=== PATIENT | female | born 1955 | race Caucasian/White ===

== ENCOUNTER 2017-07-19 06:36 | Emergency (ER) | payer MEDICARE, OTHER ==
[~2017-07-19] VITALS: Ht 170.2 cm; Wt 59.0 kg
[~2017-07-19 06:36] MED LIST: ALPRAZOLAM ER1 MG PO; CYMBALTA30 MG PO; FLEXERIL10 MG PO; GABAPENTIN300 MG PO; GOLYTELY SOLU4000 ML PO; METHADONE HCL5 MG; MORPHINE SULFAT15 M1 PO; OMEPRAZOLE20 MG PO; PRAZOSIN HCL2 MG PO; SUMATRIPTAN SUC50 MG PO; TRAMADOL HCL50 MG PO; TRAZODONE HCL50 MG PO; ZOCOR10 MG PO; ZYRTEC10 MG PO
[2017-07-19] MEDS ORDERED: MOVANTIK25 MG PO (06:48)
[2017-07-19] MEDS ORDERED: CHANTIX0.5 MG PO (06:48)
[2017-07-19] MEDS ORDERED: PREDNISONE20 MG PO (09:13)
== END 2017-07-19 10:01 | disposition home or self-care (01) ==
LOC: ED 06:36
DX: T23.202A Burn of second degree of left hand, unspecified site, initial encounter (principal); J70.5 Respiratory conditions due to smoke inhalation; F31.9 Bipolar disorder, unspecified; M06.9 Rheumatoid arthritis, unspecified; J44.9 Chronic obstructive pulmonary disease, unspecified; Z87.891 Personal history of nicotine dependence; Z98.51 Tubal ligation status; Z88.5 Allergy status to narcotic agent; X02.8XXA Other exposure to controlled fire in building or structure, initial encounter
CPT/HCPCS: 71010; 82375; 85025; 94640; 99283; J7512

== ENCOUNTER 2017-08-11 13:13 | Emergency (ER) | payer MEDICARE, OTHER ==
[~2017-08-11] VITALS: Ht 170.2 cm; Wt 59.0 kg
[~2017-08-11 13:13] MED LIST changes: +CHANTIX0.5 MG PO; +MOVANTIK25 MG PO; +PREDNISONE20 MG PO
== END 2017-08-11 13:36 | disposition home or self-care (01) ==
LOC: ED 13:13
DX: R07.81 Pleurodynia (principal); Z00.8 Encounter for other general examination

== ENCOUNTER 2023-07-22 04:11 | Emergency (ER) | payer MEDICARE, OTHER ==
[~2023-07-22] VITALS: Ht 170.2 cm; Wt 66.8 kg
[~2023-07-22 04:11] MED LIST changes: +ALPRAZOLAM0.25 MG PO; +BUPRENORPHINE HC8 MG SL; +CYCLOBENZAPRINE10 MG PO; +MINIPRESS2 MG PO; +MIRTAZAPINE15 MG PO; +PREGABALIN150 MG PO; +SPIRIVA18 MCG INH
--- OUTSIDE RECORDS SUMMARY | 2023-07-22 04:13 | XMS ---
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 ED/UCC VISIT TRACKING (12 MO.) 07/22/2023 04:11 JASMIN Ledezma OR TYPE: Emergency COMPLAINT: - SOB INPATIENT VISIT TRACKING (12 MO.) No inpatient visits to display in this time frame [email or web address]
[2023-07-22 04:42] LABS: BASOPHILS 0.9 % (0-2); EOSINOPHILS 5.9 % (0-6); HEMATOCRIT 42.3 % (35.0-50.0); HEMOGLOBIN 13.8 g/dL (12.0-18.0); LYMPHOCYTES 33.8 % (24-44); MCH 28.7 (27-36); MCHC 32.6 g/dl (30-36); MCV 88.1 fl (81-99); MONOCYTES 7.5 % (0-12); NEUTROPHILS 51.9 % (39-80); PLATELET COUNT 69 K/uL (140-440); RDW 13.8 (10.5-15.0)
[2023-07-22 04:54] LABS: ALBUMIN 3.7 g/dL (3.4-5.0); ALBUMIN/GLOBULIN RATIO 0.88 (1.1-2.4); ANION GAP 8.7 (7-21); BILIRUBIN, TOTAL 0.3 ng/dL (0.2-1.0); BUN/CREATININE RATIO 10.14 (6.0-28.6); CREATININE, SERUM 0.69 mg/dL (0.55-1.02); MAGNESIUM 1.9 mg/dL (1.8-2.4); POTASSIUM 4.7 mmol/L (3.5-5.1); PROTEIN, TOTAL 7.9 g/dL (6.4-8.2)
[2023-07-22 06:18] VITALS: BP 115/90
--- NOTE | 2023-07-23 12:14 | EKG ---
[facility] [address] [place] [address] Signed Normal sinus rhythm Normal ECG When compared with ECG of 21-MAY-2022 00:04, Nonspecific T wave abnormality no longer evident in Inferior leads T wave inversion no longer evident in Anterior leads Confirmed by DANIELLA GERBER MD ([id number]) on 07/23/2023 12:14:45 PM Electronically Signed By: DANIELLA GERBER 07/23/23 1214 PATIENT NAME: YUNGYEMI KAYLEN Electrocardiogram DATE OF : 51 PHYSICIAN: DANIELLA GERBER REPORT #: [id number] REPORT IS CONFIDENTIAL AND NOT TO BE RELEASED WITHOUT AUTHORIZATION
== END 2023-07-22 06:18 | disposition home or self-care (01) ==
LOC: ED 04:11
PROVIDERS: Internal Medicine
DX: R10.13 Epigastric pain (principal); F43.10 Post-traumatic stress disorder, unspecified; I10 Essential (primary) hypertension; J44.9 Chronic obstructive pulmonary disease, unspecified; M06.9 Rheumatoid arthritis, unspecified; Z88.8 Allergy status to other drugs, medicaments and biological substances; Z88.5 Allergy status to narcotic agent; Z79.899 Other long term (current) drug therapy
CPT/HCPCS: 36415; 71045; 80053; 83690; 83735; 83880; 84484; 85025; 93005; 93010; 99284-25; G0480

== ENCOUNTER 2024-09-08 20:27 | Emergency (ER) | payer MEDICARE, OTHER ==
[~2024-09-08] VITALS: Ht 170.2 cm; Wt 50.0 kg
[~2024-09-08 20:27] MED LIST changes: +LEVOFLOXACIN500 MG PO; +MIRTAZAPINE45 MG PO; +SUMATRIPTAN SU100 MG PO
[2024-09-08] MEDS ORDERED: KETOROLAC TROMETHAMINE 30 MG/ML VIAL IM ONE (21:00)
[2024-09-08] MEDS ORDERED: HYDROCODON-ACE1 EA10 PO (22:26)
[2024-09-08] MEDS ORDERED: HYDROCODONE BIT/ACETAMINOPHEN 5/325 MG 1 TAB HOME.PACK PO ONE (22:30)
[2024-09-08 22:40] VITALS: BP 106/73
== END 2024-09-08 22:40 | disposition home or self-care (01) ==
LOC: ED 20:27
DX: S42.124A Nondisplaced fracture of acromial process, right shoulder, initial encounter for closed fracture (principal); I10 Essential (primary) hypertension; J44.9 Chronic obstructive pulmonary disease, unspecified; Z87.891 Personal history of nicotine dependence; Z88.8 Allergy status to other drugs, medicaments and biological substances; Z88.5 Allergy status to narcotic agent; Z79.899 Other long term (current) drug therapy; W06.XXXA Fall from bed, initial encounter
CPT/HCPCS: 70450; 72125; 73030; 96372; 99284-25; A9270; J1885

== ENCOUNTER 2024-09-10 20:26 | Inpatient (IN) | payer MEDICARE, OTHER ==
[~2024-09-10] VITALS: Ht 170.2 cm; Wt 58.0 kg
[~2024-09-10 20:26] MED LIST changes: +HYDROCODON-ACE1 EA10 PO
[2024-09-10] MEDS ORDERED: DEXTROSE 50% 50 ML SYR ONE (20:30)
--- OUTSIDE RECORDS SUMMARY | 2024-09-10 20:33 | XMS ---
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 Clinic/Center: [facility] Qualified Health Current WORKERS CLINIC \F\ Center (FQ) [facility] PHONE: [phone] Care Guidelines exist for the following facilities: [facility] ( 04/09/2020 ) EJay VISIT COUNT (12 MO.) 3 JASMIN Wheeler TOTAL 3 NOTE: Visits indicate total known visits. ED/UCC VISIT TRACKING (12 MO.) 09/10/2024 20:27 JASMIN Ledezma OR TYPE: Emergency COMPLAINT: - SHORTNESS OF BREATH 09/08/2024 20:27 JASMIN Ledezma OR TYPE: Emergency COMPLAINT: - SHOULDER PAIN 10/05/2023 09:34 JASMIN Ledezma OR TYPE: Emergency COMPLAINT: - ABD PAIN, SOB DIAGNOSES: - Emphysema, unspecified - Encounter for screening for COVID-19 - Essential (primary) hypertension - Lower abdominal pain, unspecified - Other intermediate designer (current) drug therapy - Personal history of nicotine dependence - Pneumonia, unspecified organism - Shortness of breath INPATIENT VISIT TRACKING (12 MO.) No inpatient visits to display in this time frame [email or web address]
[2024-09-10] MEDS ORDERED: DEXTROSE 50% 50 ML SYR IV ONE (20:45)
[2024-09-10 21:01] LABS: BASOPHILS 0.9 % (0-2); EOSINOPHILS 0.1 % (0-6); HEMATOCRIT 46.8 % (35.0-50.0); HEMOGLOBIN 15.3 g/dL (12.0-18.0); LYMPHOCYTES 17.5 % (24-44); MCH 28.7 (27-36); MCHC 32.7 g/dl (30-36); MONOCYTES 3.9 % (0-12); NEUTROPHILS 77.6 % (39-80); PLATELET COUNT 642 K/uL (140-440); RBC 5.32 M/ul (4.3-5.7); RDW 14.1 (10.5-15.0)
[2024-09-10 21:10] LABS: ALBUMIN 3.9 g/dL (3.4-5.0); ALBUMIN/GLOBULIN RATIO 0.95 (1.1-2.4); ANION GAP 19.8 (7-21); BILIRUBIN, TOTAL 0.4 ng/dL (0.2-1.0); BUN/CREATININE RATIO 30.55 (6.0-28.6); CALCIUM 8.7 mg/dL (8.5-10.1); CREATININE, SERUM 0.72 mg/dL (0.55-1.02); POTASSIUM 3.8 mmol/L (3.5-5.1)
[2024-09-10] MEDS ORDERED: ACETAMINOPHEN 500 MG TAB PO ONE (21:30)
[2024-09-10] MEDS ORDERED: LACTATED RINGER'S 1,000 ML IV ONE ×2 (21:30→23:45)
[2024-09-10] MEDS ORDERED: KETOROLAC TROMETHAMINE 15 MG/ML VIAL IV ONE (21:30)
[2024-09-10 21:38] LABS: MAGNESIUM 2.3 mg/dL (1.8-2.4); PHOSPHORUS, INORGANIC 3.4 mg/dL (2.5-4.9)
[2024-09-10] MEDS ORDERED: MORPHINE SULFATE 4 MG/ML VIAL IV ONE (22:30)
[2024-09-10 23:03] LABS: BILIRUBIN, URINE NEGATIVE (negative); BLOOD/HGB, URINE SMALL (Negative); KETONE, URINE SMALL (Negative); LEUK ESTERASE, URINE SMALL (negative); NITRITE, URINE POSITIVE (negative); PH, URINE 5.5 (5-7)
[2024-09-10 23:23] LABS: CRYSTALS, URINE NONE SEEN (0-1+); EPITHELIAL CELLS, URINE SQUAMOUS 2+ /lpf (0-1+)
[2024-09-10 23:24] LABS: BACTERIA, URINE 2+ /hpf (negative); CASTS, URINE NEGATIVE \\lpf; COLLECTION TYPE, URINE CLEAN CATCH; REFLEX CULTURE, URINE No (No)
[2024-09-10] MEDS ORDERED: CEFTRIAXONE/SODIUM CHLORIDE 2 GM/100 ML PIGGYBACK IV ONE (23:45)
[2024-09-10] MEDS ORDERED: HYDROmorphone HCL 1 MG/ML SYR IV PRN (23:45)
[2024-09-11] VITALS (14 sets, daily range): BP systolic 95–139; BP diastolic 68–94
[2024-09-11] MEDS ORDERED: ondansetron HCL 4 MG/2 ML VIAL IV PRN ×2 (00:15→11:00)
[2024-09-11] MEDS ORDERED: HYDROmorphone HCL 1 MG/ML SYR IV PRN (00:15)
[2024-09-11] MEDS ORDERED: FOLIC ACID 1 MG TAB PO ONE (00:30)
[2024-09-11] MEDS ORDERED: MULTIVITAMINS THERAPEUTIC 1 EA TAB PO ONE (00:30)
[2024-09-11] MEDS ORDERED: DIPHTH,PERTUSS(ACELL),TET VAC 0.5 ML SYRINGE IM ONE (00:45)
--- NOTE | 2024-09-11 01:16 | NUR ---
Pt arrived to the room at 0110 hours, transferred via stretcher by LIANNE You. Pt report received from LIANNE You. Pt states she normally ambulates using a cane but was able to stand and transfer to the bed with minimal guidance, using handrails on bed. VS obtained. IV site patent, no swelling, leaking, no c/o discomfort or pain. Pt reports the last alcohol she drank was 3 or 4 days ago and it was vodka. She states she is familiar with withdrawal symptoms and states she usually experiences "the shakes". Pt oriented to room and call light, television turned on for her. Iced water provided. Pt is oriented x4. Personal belongings in SAH bag in closet, pt denies anything of value being with her, including her purse. Call light in reach.
[2024-09-11] MEDS ORDERED: LORazepam 1 MG TAB PO PRN (01:30)
[2024-09-11] MEDS ORDERED: LORazepam 2 MG/ML VIAL IV/IM PRN ×2 (01:30→11:30)
--- NOTE | 2024-09-11 03:46 | NUR ---
In with pt for CIWA reassessment. Pt current score of 8 from 10. Pt reports feeling itchy "all over" and some tingling in her feet. She is fidgety and restless, reports some nausea, no vomiting, no headache, not diaphoretic, no visual/auditory disturbances. 1mg Ativan administered PO at this time, per emar. Call light in reach.
--- NOTE | 2024-09-11 05:50 | NUR ---
In with pt for CIWA assessment. Pt is resting supine in bed with eyes closed, appears to be asleep. Breathing is regular, even, and non-labored, SPO2 97% on 3LPM while asleep. Side rails up, call light in reach.
--- NOTE | 2024-09-11 07:31 | NUR ---
RECIEVED MORNING REPORT FROM LITURGICAL MUSIC DIRECTOR RN, PT LAYING IN BED WITH EYES OPEN AND AWAKE. PT REPORTED HAVING TROUBLE SLEEPING THROUGHOUT THE NIGHT AND REQUESTED A POSSIBLE SLEEP AID. PT NOTIFIED WILL LOOK AT EMAR. PT HAS NO OTHER CONCERNS AT THIS TIME. PT CALL LIGHT WITHIN REACH.
[2024-09-11] MEDS ORDERED: THIAMINE HCL 100 MG TAB PO SCH (08:00)
--- NOTE | 2024-09-11 09:50 | NUR ---
LEFT MESSAGE FOR COPEN CRISIS LINE PATIENT IS INTERESTED IN OPTIONS.
--- NOTE | 2024-09-11 10:24 | NUR ---
PATIENT IS MODERATELY RESTLESS, ALCOHOL W/D SCALE IS 13. PATIENT GIVEN 1MG OF PO ATIVAN.
[2024-09-11] MEDS ORDERED: SODIUM CHLORIDE 0.9% 1,000 ML IV SCH (11:00)
[2024-09-11] MEDS ORDERED: THIAMINE HCL 100 MG,FOLIC ACID 1 MG,MULTIVITAMINS 10 ML in SODIUM CHLORIDE 0.9% 1,000 ML IV ONE (11:30)
--- NOTE | 2024-09-11 11:30 | NUR ---
DISCUSSED WITH MD ON CONCERNS OF PT ELEVATED CIWA SCORES AND DISCUSSING CCU. COIN MACHINE SUPERVISOR AND CHARGE NURSE IN CONVERSATION. IN AGREEMENT PT IS NOT BECOMING LESS ANXIOUS WITH ATIVAN.
--- NOTE | 2024-09-11 11:30 | NUR ---
THIS RN AND LIANNE BENAVIDES IN ROOM ADMINSTERING ATIVAN PT IS DISORIENTED TO ALL. PT APPEARS ANXIOUS. ALERT, BUT UNABLE TO FOLLOW COMMANDS.
[2024-09-11] MEDS ORDERED: PHARMACY RENAL DOSE ADJUSTMENT 1 DOSE MISC PO SCH (12:00)
--- NOTE | 2024-09-11 12:34 | NUR ---
PT TO FLOOR VIA BED WITH LIANNE TOSCANO AND THIS RN. PT ANSWERS SOME QUESTIONS. CONSTANTLY MOVING AND SQUIRMING AROUND. ATTATCHED TO MONITORS WHICH SHE REMOVES ALMOST IMMEDIETLY. LUNCH ON TRAY IN FRONT OF HER. STATES SHE IS HUNGRY.
--- NOTE | 2024-09-11 13:22 | NUR ---
PT IN BED STILL FIDGITY BUT HAS EYES CLOSED. ALARMS ON.
--- NOTE | 2024-09-11 13:59 | NUR ---
PT MORE FIDGETY AND PULLING AT HER IV DRESSING. DID ANOTHER CIWA, UP TO 13 AGAIN. ADMINISNTERED ATIVAN PER ORDER.
--- NOTE | 2024-09-11 14:04 | NUR ---
UR CLINICAL REVIEW: 2 MN FOR VERSALUS-MEETS INPATIENT CRITERIA [facility] INPT 09/11/24 @ 1054 ORDER MATCHES REG NO AUTH REQUIRED PER MEDICARE GUIDELINES DISCHARGE PENDING FURTHER TREATMENT AND EVALUATION
[2024-09-11] MEDS ORDERED: buprenorphine HCL 8 MG TAB.SUBL SL SCH (14:35)
--- NOTE | 2024-09-11 15:42 | NUR ---
ADMINISTERED SCHEDULED BUPENOPHRINE. PT MOVING AROUND IN BED AGAIN. AWARE OF SURROUNDINGS. REPORTS BEING COLD. COVERED WITH BLANKETS AGAIN.
[2024-09-11 15:51] LABS: AMPHETAMINES, URINE NEGATIVE (NEGATIVE); BARBITURATES, URINE NEGATIVE (NEGATIVE); BENZODIAZEPINE, URINE NEGATIVE (NEGATIVE); BUPRENORPHINE, URINE POSITIVE (NEGATIVE); CANNABINOID, URINE NEGATIVE (NEGATIVE); COCAINE, URINE NEGATIVE (NEGATIVE); ECSTASY, URINE NEGATIVE (NEGATIVE); FENTANYL, URINE NEGATIVE (NEGATIVE); METHADONE, URINE NEGATIVE (NEGATIVE); OPIATES, URINE POSITIVE (NEGATIVE); OXYCODONE, URINE NEGATIVE (NEGATIVE); PHENCYCLIDINE, URINE NEGATIVE (NEGATIVE)
--- NOTE | 2024-09-11 16:02 | NUR ---
PT INCREASINGLY FIDGITY. ORIENTS WHEN TOLD TO PUT LEGS BACK IN BED. ALARMS ON. IVF INFUSING, THIAMINE COMPLETE.
--- NOTE | 2024-09-11 17:49 | NUR ---
CALLED REGARDING DIABETIC ORDERS AND HE WILL PUT IN SHORTLY.
[2024-09-11] MEDS ORDERED: DEXTROSE 5% 1,000 ML IV PRN (18:15)
[2024-09-11] MEDS ORDERED: IBLOOD GLUCOSE TEST STRIP 1 EA TEST XX PRN (18:15)
[2024-09-11] MEDS ORDERED: DEXTROSE 50% 50 ML SYR IV PRN ×2 (18:15)
[2024-09-11] MEDS ORDERED: GLUCAGON,HUMAN RECOMBINANT 1 MG/ML VIAL SUB-Q PRN (18:15)
--- NOTE | 2024-09-11 18:53 | NUR ---
PT AWAKE AND WANTING TO EAT DINNER. WARMED UP IN MICROWAVE. PT IS MORE BRIGHT EYED AND ALERT THAN ANY TIME TODAY.
--- NOTE | 2024-09-11 19:38 | NUR ---
REPORT RECEIVED FROM SHOSHANA Mckenzie RN. PATIENT SITTING UP IN BED WHILE EATTING SUPPER. DENIES NEEDS EXCEPT REQUESTS THERMOSTAT BE TURNED UP, INCREASED PER REQUEST. CALL LIGHT IN REACH AND BED ALARM ON.
--- NOTE | 2024-09-11 20:12 | NUR ---
PATIENT PARTICIPATES IN ASSESSMENT BUT IS DROWSY. INCENTIVE SPIROMETER AND EDUCATION PROVIDED. PATIENT ABLE TO ACHIEVE 500ML. POSTERIOR LOWER LUNG LOBES AUSCULATED FOR CRACKLES. DR. MONTERROSO NOTIFIED. ORDER RECEIVED TO DECREASE IVF TO 75ML/HR.
--- NOTE | 2024-09-11 20:49 | NUR ---
PATIENT GIVEN WASH CLOTH TO CLEAN FACE AND HANDS. FRESH WATER GIVEN AND PO INTAKE ENCOURGED. IV ABX STARTED. CALL LIGHT IN REACH AND BED EXIT ALARM. FALL RISK AND SAFETY EDUCATION PROVIDED, PATIENT VERBALIZES UNDERSTANDING.
[2024-09-11] MEDS ORDERED: INSULIN LISPRO 100 UNIT/ML ML SUB-Q SCH (21:00)
[2024-09-11] MEDS ORDERED: CEFTRIAXONE/SODIUM CHLORIDE 2 GM/100 ML PIGGYBACK IV SCH (21:00)
[2024-09-11] MEDS ORDERED: IBLOOD GLUCOSE TEST STRIP 1 EA TEST VI SCH (21:00)
--- NOTE | 2024-09-11 21:15 | NUR ---
PATIENT SET OFF BED ALARM. PATIENT ATTEMPTED TO GET UP TO COMMODE WITHOUT ASSISTANCE. UNSTEADY ON FEET. VOIDED 550ML DARK YELLOW URINE. BACK TO BED. REINFORCED SAFETEY EDUCATION AND CALL LIGHT USE. BED ALARM BACK ON.
--- NOTE | 2024-09-11 21:50 | NUR ---
RR DECREASE NOTED ON MONITOR. PATIENT RESTING WITH EYES CLOSED AND MOUTH BREATING. REPOSITIONED IN BED TO PROMOTE IMPROVED VENTILATION. OXY MASK PLACED ON 2L WITH O2 SAT 97%.
--- NOTE | 2024-09-11 23:14 | NUR ---
PATIENT RESTLESS IN BED. PULLING AT OXYMASK, TEARING OFF COVERS, PULLING AT GOWN. REPORTS FEELING ANXIOUS. CIWA SCORE 8. MEDICATED WITH ATIVAN PER EMAR. PLACED BACK ON NC. CALL LIGHT IN REACH WITH BED EXIT ALARM ON.
--- NOTE | 2024-09-11 23:42 | NUR ---
PATIENT MOVED TO ROOM 128 AFTER MULTIPLE ATTEMPTS AT GETTING UP WITHOUT ASSISTANCE AND SETTING OFF BED EXIT ALARM. PATIENT DISORIENTED TO TIME BUT IS ORIENTED TO PLACE, ASKS "IS THE HOSPITAL SENDING ME HOME RIGHT NOW?" REASSURED PATIENT SHE IS NOT BEING SENT HOME AND IS BEING CARED FOR IN THE CCU. PATIENT ASKS THIS RN TO CALL HER SON, RE-ORIENTED TO TIME AND PATIENT REPORTS SHE CAN CALL HIM IN THE MORNING. BED EXIT ALARM REMAINS ON AND CALL LIGHT IN REACH. PERSONAL ITEMS IN REACH.
[2024-09-12] VITALS (16 sets, daily range): BP systolic 90–152; BP diastolic 60–90
--- NOTE | 2024-09-12 00:40 | NUR ---
PATIENT STARTLED AWAKE FOR ASSESSMENT. BEGAN PULLING AT GOWN, COVERS AND IV LINES. RESTLESS IN BED. ENDORSED BACK PAIN, MEDICATED PER EMAR FOR PAIN. PATIENT FOLLOWS DIRECTIONS TO LIE BACK IN BED. BED ALARM REMAINS ON, CALL LIGHT IN REACH.
--- NOTE | 2024-09-12 01:50 | NUR ---
PATIENT ATTEMPTED TO GET OOB WITHOUT ASSISTANCE. CIWA SCORES AT 10. 2 PERSON ASSIST TO BSC TO VOID. MEDICATED WITH ATIVAN PER EMAR. COMFORT MEASURES PROVIDED. BED ALARM ON WITH CALL LIGHT IN REACH.
--- NOTE | 2024-09-12 03:27 | NUR ---
DR. MONTERROSO UPDATED ON PATIENT'S CIWA STATUS WITH INCREASED CONFUSION AND INABILITY TO FOLLOW DIRECTIONS. PATIENT ROLLS AROUND IN BED, ATTEMPTS TO CLIMB OUT OF BED. PULLS AT LINES, LINENS. PATIENT C/O URGENCY TO VOID, HOWEVER NOW MORE UNSTEADY AND UNABLE TO FOLLOW DIRECTIONS TO USE COMMODE. ORDER RECEIVED FOR PHENOBARBITOL AND VARGHESE CATHETER. PATIENT NOTED TO HAVE SLIGHTLY PROLONGED QTC ON CONTINOUS TELEMETRY MONTORING, 500-502. ORDER RECEIVED FOR EKG.
[2024-09-12] MEDS ORDERED: PHENOBARBITAL SOD 130 MG/ML VIAL IV ONE (03:30)
--- NOTE | 2024-09-12 04:07 | NUR ---
PHENOBARBITOL GIVEN PER EMAR. VARGHESE CATHETER PLACED WITH IMMEDIATE RETURN OF 550ML CLEAR YELLOW URINE. UPON INSERTION SMALL AMOUNT OF WHITE TO YELLOWISH PURULENT DRAINAGE NOTED. PATIENT REPOSITIONED IN BED, PARTIAL LINEN CHANGE COMPLETED FOR INCONTINENCE OF URINE. PATIENT NOW LYING IN BED RELAXED AND REPORTS RELIEF. DENTURES REMOVED AND SOAKING. CALL LIGHT IN REACH, BED EXIT ALARM FOR SAFETY.
[2024-09-12 05:21] LABS: PH, VENOUS 7.374 (7.31-7.41)
[2024-09-12 05:23] LABS: BASOPHILS 0.8 % (0-2); EOSINOPHILS 3.4 % (0-6); HEMATOCRIT 34.8 % (35.0-50.0); HEMOGLOBIN 11.7 g/dL (12.0-18.0); LYMPHOCYTES 37.7 % (24-44); MCH 29.4 (27-36); MCHC 33.7 g/dl (30-36); MCV 87.3 fl (81-99); MONOCYTES 8.6 % (0-12); NEUTROPHILS 49.5 % (39-80); PLATELET COUNT 347 K/uL (140-440); RBC 3.99 M/ul (4.3-5.7); RDW 13.7 (10.5-15.0)
[2024-09-12 05:42] LABS: ALBUMIN 2.6 g/dL (3.4-5.0); ALBUMIN/GLOBULIN RATIO 0.96 (1.1-2.4); BILIRUBIN, TOTAL 0.4 ng/dL (0.2-1.0); BUN/CREATININE RATIO 17.24 (6.0-28.6); CALCIUM 8.1 mg/dL (8.5-10.1); CREATININE, SERUM 0.58 mg/dL (0.55-1.02); MAGNESIUM 1.7 mg/dL (1.8-2.4); PHOSPHORUS, INORGANIC 2.7 mg/dL (2.5-4.9); PROTEIN, TOTAL 5.3 g/dL (6.4-8.2)
--- NOTE | 2024-09-12 06:21 | NUR ---
PATIENT WAKES TO RN IN ROOM. IMMEDIATELY BEGINS PULLING AT GOWN, LINES AND LINEN, THRASHES IN BED. ORIENTED TO SELF. MEDICATED WITH ATIVAN PER EMAR. TELEMETRY LEADS REPLACED. WARM BLANKET PROVIDED. CALL LIGHT IN REACH WITH BED EXIT ALARM ON.
[2024-09-12] MEDS ORDERED: MAGNESIUM CHLORIDE 64 MG TABCR PO ONE (08:00)
--- NOTE | 2024-09-12 08:20 | NUR ---
PT RESTLESS AND CONFUSED, RN ASSISTED PT IN AM CARES - PT ASKING FOR DENTURES BUT HAS THEM IN HER MOUTH AFTER ORAL CARE. RN ASSISING PT TO EAT YOGURT FOR MEAL. PT HAS POOR HAND EYE COORDINATION AND CONTROL OF MOVEMENTS WITH CONFUSION ON ADLS. VERBAL CUES TO AID PT IN EATING AND STAYIN IN BED ANO ON TASK. PT THINKS SHE IS AT HER APARTMENT AND DOES NOT KNOW EVENT. IN SPITE OF BED BATH AND SPARKLE CARE PT HAS STRONG URINE ODOR, ATTENDS PLACED TO KEEP PT HANDS AWAY FROM SPARKLE AREA SHE IS PUTTING HER FOOD AND DENTURES IN THE AREA THEN TRYING TO EAT. VARGHESE EMPTIED 650 OF CLEAR YELLOW URINE, AND RN ASSISTED PT IN SECURING HAIR AWAY FROM FACE IN RUBBERBAND. BED ALARM ON AND VISIBLE TO RN STATION.
[2024-09-12] MEDS ORDERED: ENOXAPARIN SODIUM 40 MG/0.4 ML SYR SUB-Q SCH (09:00)
--- NOTE | 2024-09-12 11:00 | NUR ---
OVER TO SEE PATIENT. PATIENT IN BED SLEEPING. DISCUSSED CONCERNS WITH SHOSHANA ABDALLA. GIVEN PATIENT PAST HISTORY CALL PLACED TO [facility]. PATIENT IS NO LONGER ESTABLISHED WITH [facility].
--- NOTE | 2024-09-12 11:20 | NUR ---
pt moving around restless in bed, pulling at iv and haines cath - reminded about safety and lines for care. pt given ensure juice to drink but could not safely hold it and drink on her own without spilling and moving about. her focus is poor and she needs multiple verbal cues to drink from a straw. pt resting with bed alarm on and visible to rn, with call light.
--- NOTE | 2024-09-12 12:20 | NUR ---
PT RESTLESS, ATTEMPTING TO EAT, NOT ABLE TO GET FOOD TO MOUTH WELL - SPILLS JUICE AND IS UNAWARE OF SPILL SATURATING BED, RN GETS PT SALENA TO ASSESS PT AND ASSIST TO GET SAFELY UP TO CHAIR TO CHANGE LINEN. PT IS ABLE TO STAND AND SIT IN CHAIR WITH MUCH VERBAL CUE AND ASSIST OF 1 PERSON. LINEN CHANGE, MOPPED ROOM AND RN FED PATIEN, SHAKEY AND CONFUSED, AWARE OF HER NAME BUT NOT LOCATION - THINKS SHE IS AT HER APPARTMENT, KNOWS THIS IS CRISTIN. SITS UP IN CHAIR AND RESTLESSLY MOVES ABOUT. PULLS OFF HER CHRONIC OXYGEN AND NEEDS TO BE REMINDED TO KEEP IT ON. PT CHEWS THEN SPITS OUT FOOD, BENDS BODY AND MOVES AROUND RESTLESS IN CHAIR, DENIES PAIN - CIWA + ATIVAN GIVEN, AND PT CONTINUES TO BE UP IN CHAIR VISIBLE TO RN STATION.
--- NOTE | 2024-09-12 13:15 | NUR ---
in room with , pt up in chair awaken for assessment, unaware of her current location, knows her name- with out being asked states she is ready to go to treatment. pt denies needs, call light in reach, visible to rn station while asleep in chair. . aware of past medical history in [facility], and prior [facility] assists. pt is flopping all over in the chair when awake, calms and settles when not stimulated to talk or participate. speech is garbled.
[2024-09-12] MEDS ORDERED: FLUCONAZOLE 150 MG TAB PO ONE (14:45)
--- NOTE | 2024-09-12 15:46 | NUR ---
NEW IV STARTED IN LEFT FORE ARM WHILE PT SAT UP IN CHAIR. PT TOLLERATED WELL - IV FUSING NS@100 ML WNL. PT RESTLESS, RN IN WITH PT.
--- NOTE | 2024-09-12 18:15 | NUR ---
PT UP IN CHAIR FOR DINNER - RN ASSIST WITH FEEDING - ASPIRATION PRECAUTIONS. PT WITH UPPER AND LOWER DENTURES, PT MISPLACED THEM AT ONE POINT - FOUND UNDERNEATH HER. PT UNAWARE OF HER DENTURES NOT BEING IN HER MOUTH. SHE IS UNAWARE THAT THEY WERE MISSING, NOW FOUND - THEY FIT POORLY - PLACED IN CUP TO SOAK. PT MEAL PUREED AND SOFT FOODS, ASSISTED TO FEED. VERBAL CUES TO EAT - PT IS FLAILING AROUND IN CHAIR WITH ARMS AND LEGS - REPORTS SHE HAS PETS LOCKED IN HER APARTMENT AT [employer] AND WANTS ME TO GO FEED THEM. ALSO ASKS ME TO CALL HER SON - ATTEMPTED - PHONE NOT IN SERVICE. DR MONTERROSO HER TO UNIT AND UPDATED, SEES PT CONFUSED UP IN CHAIR. WARM BLANKET TO PT.
--- NOTE | 2024-09-12 18:45 | NUR ---
pt trsf from chair to bed with max cuing assist. bed alarm on, call light in reach - pt confused and not following verbal commands very well - would not be able to get to bed without help and instructions. warm blankets given, iv on r arm x2 dc intact as they flush but leak. new iv is on left side fusing ns@100 - haines emptied for 225 urine pt assisted to drink lucia. ensure of 200 ml. resting now in bed visible to rn station.
--- NOTE | 2024-09-12 19:01 | NUR ---
pt sister holley called as she had a missed call from the hospital today (dr rayo attempted to call her). [phone] is sister holley pt son Ziyad lives in [place], sister would like updates and to talk to . pt given phone to attempt to her sister and became very agitated. but talkative. pt rests easily and is visible to rn at this time. report to stephanie now.
--- NOTE | 2024-09-12 19:48 | NUR ---
REPORT RECEIVED FROM LIANNE ANNA. PATIENT CURRENTLY RESTING WITH EYES CLOSED AT THIS TIME. CALL LIGHT IN REACH. BED IN LOWEST POSITION AND LOCKED, EXIT ALARM ON.
--- NOTE | 2024-09-12 21:14 | NUR ---
PATIENT'S SON CHASE BOWENS [phone] CALLED AFTER HIS AUNT WAS ABLE TO CONTACT HIM. CHASE REPORTS PATIENT HAS A LONG HISTORY OF "OVERMEDICATING", AT TIMES "SAVING THEM UP TO TAKE ALL AT ONCE" OR "SAYING SHE FORGOT A DOSE AND TAKING DOUBLE". CHASE REPORTS SHE LIVES ALONE AND HER BUILDING DOES HAVE AN ELEVATOR. HE SAID SHE CURRENTLY DOES NOT HAVE A CAREGIVER, THE THINKS SHE POSSIBLY MAY HAVE HAD CAREGIVERS THROUGH [employer] BUT HE IS UNSURE,HOWEVER, REPORTED THAT SHE HAD FIRED CAREGIVERS. HE SAID SHE HAS NEIGHBORS THAT HAVE TRIED TO HELP HER IN THE PAST BUT SHE THEN "FIGHTS WITH" HER NEIGHBORS AND CAREGIVERS. CHASE SAID SHE ISOLATES HERSELF IN HER APARTMENT. HE REPORTED SHE HAD WHAT HE THOUGHT WAS A LEG FRACTURE ABOUT 4 YEARS AGO AND SHE WAS SENT TO [place] WHERE SHE WAS IN THE HOSPITAL FOR A MONTH. CHASE HAS NOT SEEN HIS MOTHER IN ABOUT 8 MONTHS. SHE USES PREPAID PHONES AND OFTEN HER NUMBER CHANGES. CHASE IS IN [facility] AND WILL ATTEMPT TO COME SEE HER THIS WEEKEND. CHASE WILL REACH OUT TO HER BUILDINGS AND GROUNDS COORDINATOR TO SEE IF THEY CAN CARE FOR PATIENT'S DOG AND CAT. PATIENT ROUSES TO NAME FOR ASSESSMENT. ALERT TO SELF AND PLACE. ASKS WHEN SHE CAN GO HOME. REVIEWED PLAN OF CARE BUT PATIENT DOES NOT DEMONSTRATE UNDERSTANDING. PATIENT SITS UP IN BED, UNABLE TO CONTROL MOVEMENTS, REACHES AT THE AIR. MEDICATED WITH ATIVAN PER EMAR. PO FLUIDS OFFERED, WARM BLANKET PROVIDED. IVF INFUSING WITHOUT DIFFICULTY. VARGHESE CARE COMPLETED. DENTURES REMOVED AND SOAKING TO CLEAN. ASSESSMENT CHARTED. CALL LIGHT IN REACH, BED IN LOWEST POSITION/LOCKED AND BED EXIT ALARM ON. PATIENT REMAINS IN VISUALIZATION FROM THE NURSES STATION.
--- NOTE | 2024-09-12 22:00 | NUR ---
DR. MONTERROSO ROUNDING ON UNIT. UPDATED ON PATIENT AND OUTCOME OF PHONE CALL WITH PATIENT'S SON. NO CHANGE TO PLAN OF CARE AT THIS TIME. PATIENT REGISTRATION NOTIFIED TO UPDATE PATIENT'S SON'S NUMBER FOR EMERGENCY CONTACT.
--- NOTE | 2024-09-12 22:57 | EKG ---
[facility] [address] [place] [address] Signed Normal sinus rhythm Nonspecific T wave abnormality Abnormal ECG When compared with ECG of 05-OCT-2023 09:50, premature ventricular complexes are no longer present premature atrial complexes are no longer present Confirmed by Ally Monterroso MD () on 09/12/2024 10:57:13 PM Electronically Signed By: ALLY MONTERROSO MD 09/12/24 2257 PATIENT NAME: YEMI BARRAGAN Electrocardiogram DATE OF : 51 PHYSICIAN: ALLY MONTERROSO MD REPORT #: [id number] REPORT IS CONFIDENTIAL AND NOT TO BE RELEASED WITHOUT AUTHORIZATION
--- NOTE | 2024-09-12 23:02 | NUR ---
PATIENT RESTING CALMLY AT THIS TIME WITH EYES CLOSED. RESPIRATIONS EVEN AND UNLABORED. THIS RN GROUPING CARES AND INTERVENTIONS TO REDUCE STIMULI AND PROMOTE REST. PATIENT REMAINS IN DIRECT VISUALIZATION FROM THE NURSE'S STATION. BED EXIT ALARM ON, CALL LIGHT IN REACH.
[2024-09-13] VITALS (23 sets, daily range): BP systolic 95–132; BP diastolic 65–90
--- NOTE | 2024-09-13 00:14 | NUR ---
PATIENT ROUSES TO NAME FOR ASSESSMENT. ALERT TO SELF AND PLACE ONLY. ASKS FOR HER KEYS. PATIENT APPEARS RESTLESS WHILE SLEEPING, OFTEN FIDGETING AND ATTEMPTING TO PUT HER LEGS OVER SIDE RAIL. MEDICATED WITH ATIVAN PER EMAR FOR CIWA SCORE OF 9. VARGHESE CATHETER PATENT AND DRAINING CLEAR YELLOW URINE, 425 UO AT THIS TIME. ASSISTED WITH ADJUSTING BLANKETS. PATIENT FALLS ASLEEP DURING CARES BUT STARTLES TO SOUND AND HAS SPASTIC UNCONTROLLED MOVEMENTS. BED REMAINS LOW, LOCKED AND WITH EXIT ALARM ON. CALL LIGHT IN REACH AND PATIENT IN DIRECT VISUALIZATION OF NURSING STAFF.
--- NOTE | 2024-09-13 01:44 | NUR ---
PATIENT RESTING IN BED. APPEARS CALM AND RELAXED, NO FIGDETING OR RESTLESSNESS NOTED WHEN RESTING. RESPIRATIONS SHALLOW BUT UNLABORED. RR 15, O2 SAT 93% 2L NC. CONTINUEING TO PROMOTE REST. CALL LIGHT IN REACH. BED EXIT ALARM ON.
--- NOTE | 2024-09-13 03:42 | NUR ---
PATIENT WAKES AND IS MILDY RESTLESS IN BED. RESPONDS TO NAME. REPORTS PAIN IN HER BACK. MEDICATED FOR PAIN PER EMAR. VARGHESE BAG DRAINED FOR 700ML CL YELLOW URINE.
--- NOTE | 2024-09-13 04:38 | NUR ---
ASSESSMENT CHARTED. CIWA SCORES AT 6. PATIENT ROUSES BRIEFLY, FOLLOWS DIRECTIONS FOR ORAL TEMP BUT OTHERWISE DOES NOT FOLLOW COMMANDS. FALLS BACK ASLEEP DURING ASSESSMENT. IVF INFUSING WITHOUT DIFFICULTY. WHEN ASKED, PATIENT UNABLE TO REPORT IMPROVEMENT IN BACK PAIN OR NOT AFTER MEDICATION, HOWEVER APPEARS RELAXED WHEN AT REST. CALL LIGHT IN REACH, BED EXIT ALARM ON.
--- NOTE | 2024-09-13 05:15 | NUR ---
CUSTOMER SERVICE VOICE IN TO DRAW AM LABS. PATIENT MINIMALLY ROUSED, MOANED AND FURROWED BROW BUT IMMEDIATELY RELAXED AND NOW RESTING QUIETLY WITH EYES CLOSED. BED EXIT ALARM REMAINS ON FOR SAFETY. CALL LIGHT IN REACH.
[2024-09-13 05:22] LABS: BASOPHILS 1.3 % (0-2); EOSINOPHILS 8.4 % (0-6); HEMATOCRIT 34.9 % (35.0-50.0); HEMOGLOBIN 11.8 g/dL (12.0-18.0); MCH 29.4 (27-36); MCHC 33.7 g/dl (30-36); MCV 87.3 fl (81-99); MONOCYTES 7.3 % (0-12); PLATELET COUNT 300 K/uL (140-440); RDW 13.9 (10.5-15.0)
[2024-09-13 05:35] LABS: ALBUMIN 2.4 g/dL (3.4-5.0); ALBUMIN/GLOBULIN RATIO 0.8 (1.1-2.4); ANION GAP 8.8 (7-21); BILIRUBIN, TOTAL 0.4 ng/dL (0.2-1.0); BUN/CREATININE RATIO 12.24 (6.0-28.6); CALCIUM 8.1 mg/dL (8.5-10.1); CREATININE, SERUM 0.49 mg/dL (0.55-1.02); MAGNESIUM 1.7 mg/dL (1.8-2.4); POTASSIUM 3.8 mmol/L (3.5-5.1); PROTEIN, TOTAL 5.4 g/dL (6.4-8.2)
--- NOTE | 2024-09-13 06:26 | NUR ---
PATIENT WAKES AND OPENS EYES TO SOUND IN ROOM. STATED "I AM SICK" WHEN ASKED HOW SHE IS FEELING BUT UNABLE TO ARTICULATE HOW SPECIFICALLY SHE FEELS SICK. REPORTS SHE FEELS HUNGRY. SPEACH PREVIOUSLY GARBLED HOWEVER, NOW MORE CLEAR DURING THIS EXCHANGE. PATIENT FULLY OPENED EYES AND MADE MEANINGFUL EYE CONTACT WITH THIS RN. ENCOURAGED PATIENT TO REST AND INFORMED HER BREAKFAST WILL BE SOON. ASSISTED WITH COVERS FOR COMFORT. CALL LIGHT IN REACH, BED EXIT ALARM ON.
--- NOTE | 2024-09-13 07:30 | NUR ---
REPORT RECEIVED FROM CLERK OF COURT RN. PATIENT RESTING IN BED. IVF INFUSING WITH NO ISSUE OR CONCERNS. DENIES NEEDS AT THIS TIME CALL LIGHT WITHIN REACH, BED ALARM ON.
[2024-09-13] MEDS ORDERED: MAGNESIUM CHLORIDE 64 MG TABCR PO ONE (08:00)
--- NOTE | 2024-09-13 08:15 | NUR ---
PATIENT RESTING IN BED. AWAKE AND ALERT, ABLE TO FOLLOW CUES. ABLE TO ANSWER QUESTIONS APPROPIATLY. CIWA OF 8, ATIVAN ADMINSTERED. PATIENT ALERT AND ORIENTED TO PERSON, PLACE UNKNOWN EXACT DATE ABLE TO RECALL THE MONTH. LUNGS DIM IN UPPER LOBES NOTED CRACKLES IN LOWER LOBES. PATIENT ON 2 L O2 VIA NC. C/O BACK PAIN. AM MEDICATION ADMINSTERED. IVF INFUSING WITH NO ISSUES OR CONCERNS. BED ALARM IN PLACE.
--- NOTE | 2024-09-13 08:30 | NUR ---
VSS, PATIENT EATING BREAKFAST. ABLE TO FEED SELF WITH MINIMIAL NEEDS TO ASSISTANCE. RN SPOKE WITH SON ON PHONE AND GAVE UPDATE.
--- NOTE | 2024-09-13 09:10 | NUR ---
RN SPOKE WITH SISTER AND GAVE UPDATE.
--- NOTE | 2024-09-13 10:22 | NUR ---
PT IN ROOM WITH PATIENT.
--- NOTE | 2024-09-13 10:28 | NUR ---
WORKING WITH OT. WILL RETURN TO SPEAK WITH PATIENT.
--- NOTE | 2024-09-13 11:00 | NUR ---
PT NOT AVAILABLE FOR VISIT. PROVIDED PRAYER.
--- NOTE | 2024-09-13 11:06 | NUR ---
SPOKE WITH PATIENT. SHE IS WANTING TO GO TO REHAB. STATES SHE NEEDS TO BE SOMEWHERE SAFE. THINKS SHE IS BEING EVICTED FROM HER APARTMENT FOR NOT PAYING RENT. STATES RENT IS DUE THE OF THE MONTH. STATES SHE THINKS SHE PAID AUGUST. DISORIENTED TO THE DATE. REORIENTED. SHE DOES NOT RECALL GETTING ANY EVICTION NOTICE. SHE IS AWARE SHE LIVES IN [place] APARTMENTS. STATES HER SONE CAN CHECK INTO THAT IF NEEDED. CALLED SEPIDEH AT [facility]. INFORMED HER OF PATIENT REQUEST FOR INPATIENT REHAB AND NOT YET BEING MEDICALLY CLEARED. SEPIDEH STATES WITH THANKSGIVING BEING TOMORROW, NO PEERS ARE AVAILABLE TO SEE THE PATIENT AT THE MOMENT. CONTACT INFORMATION PROVIDED TO SEPIDEH FOR PATIENT. STATES SOMEONE WILL REACH OUT WHEN THEY ARE AVAILABLE.
--- NOTE | 2024-09-13 11:50 | NUR ---
INFORMED PATIENT [facility] HAS HER INFORMATION AND THEY WILL BE REACHING OUT TO HER. ALSO PROVIDED [facility] CRISIS NUMBER, SHE WAS UNABLE TO SEE IT ON CARD SO IT WAS WRITTEN IN BOLD BLACK INK FOR HER ON A STICKY NOTE. SHE STATES SHE IS ABLE TO READ IT. ALSO PROVIDED THE HOMELESS/ADDICTION BROCHURE WITH NUMBERS FOR [facility].
--- NOTE | 2024-09-13 12:09 | NUR ---
CIWA COMPLETED, PATIENT NOTED WITH INCREASED RESTLESSNESS. PRN ADMINSTERED. VARGHESE DRAINAING YELLOW URINE. IV SITE PATENT IVF INFUSING WITH NO ISSUES OR CONCERNS. BS TAKEN. NO INSULIN REQUIRED. PATIENT SET UP WITH LUNCH AT THIS TIME. BED ALARM IN PLACE.
--- NOTE | 2024-09-13 13:10 | NUR ---
PATIENT RESTING IN BED WITH EYES CLOSED. RESPIRATIONS EVEN AND UNLABORED. NO NEEDS AT THIS TIME. CALL LIGHT WITHIN REACH.
--- NOTE | 2024-09-13 15:24 | NUR ---
PATIENT RESTLESS IN BED. FX ARTIST IN ROOM OFFERED WARM BLANKETS. NO FURTHER NEEDS. BED ALARM IN PLACE.
--- NOTE | 2024-09-13 15:34 | NUR ---
PATIENT ON PHONE WITH HER SON AT THIS TIME.
--- NOTE | 2024-09-13 16:34 | NUR ---
PATIENT ASSISTED TO BSC WITH 2 PA ASSIST. PATIENT TOLLERATED TRANSFER WELL PHYSICALLY, HOWEVER PROVED TO HAVE DIFFICULTY FOLLOWING COMMANDS AT TIMES. PATIENT VERY UNSTEADY ON FEET. BACK IN BED. NOTED MEDIUM FIRM BM. C/O PAIN TO LOWER BACK AND RIGHT HIP. PRN MEDICATION ADMINSTERED SEE EMAR. CIWA COMLETED SCORE OF <8. NO FURTHER NEEDS AT THIS TIME. IV SITE REMAINS PATENT. CALL LIGHT WITHIN REACH, BED ALARM ON.
--- NOTE | 2024-09-13 17:26 | NUR ---
PATIENT RESTING IN BED WITH EYES CLOSED. RESPIRATIONS EVEN AND UNLABORED. CALL LIGHT WITHIN REACH. BED ALARM ON.
--- NOTE | 2024-09-13 17:53 | NUR ---
PATIENT RESTING IN BED. EATING DINNER AT THIS TIME. BED ALARM ON.
--- NOTE | 2024-09-13 18:15 | NUR ---
PATIENT NOTED TO BE COUGHING WHILE EATING DINNER. THIS RN SWAPPED OUT PATIENT'S DINNER FOR A MEAL REPLACEMENT. PATIENT DRANK AN ENSURE WITH NO ISSUES OR CONCERN. CALL LIGHT WITHIN REACH, BED ALARM IN PLACE.
--- NOTE | 2024-09-13 19:45 | NUR ---
RECEIVED REPORT FROM DAY SHIFT RN. PATIENT IS RESTING IN BED WITH EYES CLOSED, RR 13. NAD NOTED. CALL LIGHT IN REACH. BED ALARM ON FOR SAFETY.
--- NOTE | 2024-09-13 20:07 | NUR ---
PATIENT REPOSITIONED IN BED. PATIENT REPORTS 9/10 PAIN IN HER BACK AND HIPS, PRN PAIN MEDS GIVEN PER ORDER. PATIENTS BS TAKEN AND IS WNL. PATIENTS VITALS RECORDED. VARGHESE CARE COMPLETED, VARGHESE EMPTIED, AND INTAKE AND OUTPUT RECORDED. PATIENT DENIES ANY SOB AND REMAINS ON 2L VIA NC. PATIENTS ASSESMENT COMPLETED. PATIENT PROVIDED FRESH ICE WATER AND WARM BLANKET. PATIENT DENIES ANY FURTHER NEEDS. CALL LIGHT IN REACH. BED ALARM ON FOR SAFETY.
--- NOTE | 2024-09-13 21:52 | NUR ---
PATIENTS IV NOTED TO HAVE REDNESS STREAKED UP ARM. PATIENTS IV HAS BLOOD RETURNED. PATIENTS IV DC'D AND NEW IV PLACED. PATIENTS CIWA NOTED TO BE 8. PATIENT GIVEN PRN MEDICATION FGOR CIWA OF 8 PER PROTOCOL. PATIENT REPORTS IMPROVEMENT IN PAIN. PATIENTS IV INFUSING PER ORDER. PM ABX INFUSING PER ORDER. PATIENT DENIES ANY FURHTER NEEDS. WARM BLANKET PROVIDED. CALL LIGHT ANB BELONGINGS ARE WITHIN REACH. BED ALARM ON FOR SAFETY.
--- NOTE | 2024-09-13 23:03 | NUR ---
PATIENT ASSISTED TO REPOSITION IN BED. PATIENT DENIES ANY PAIN OR SOB. PATIENT DENIES ANY FURTHER NEEDS. CALL LIGHT IN REACH. IV INFUSING PER ORDER. BED ALARM ON FOR SAFETY.
[2024-09-14] VITALS (17 sets, daily range): BP systolic 99–149; BP diastolic 64–93
--- NOTE | 2024-09-14 00:20 | NUR ---
PATIENT IS RESTING IN BED WITH EYES CLOSED, RR 11. BREATHING IS EVEN AND UNLABORED. NAD NOTED. CALL LIGHT IN REACH. BED ALARM ON FOR SAFETY.
--- NOTE | 2024-09-14 01:45 | NUR ---
PATIENT IS RESTING IN BED WITH EYES CLOSED, RR 16. CALL LIGHT IN REACH. BED ALARM ON FOR SAFETY. IV INFUSING PER ORDER.
--- NOTE | 2024-09-14 04:02 | NUR ---
PATIENT NOTED TO BE RESTLESS IN BED. PATIENT DENIES ANY PAIN. PATIENT REPORTS BEING COLD. WARM BLANKET PROVIDED. NO FURTHER NEEDS NOTED. CALL LIGHT IN REACH. 2L VIA NC IN PLACE. IV INFUSING PER ORDER. BED ALARM ON FOR SAFETY.
--- NOTE | 2024-09-14 05:21 | NUR ---
PATIENT ASSISTED TO REPOSITION. PATIENT DENIES ANY PAIN. PATIENTS VITALS RECORDED. PATIENTS VARGHESE EMPTIED. PATIENTS IV INFUSING PER ORDER. PATIENT REMAINS ON 2L VIA NC AND DENIES ANY SOB. PATIENT DENIES ANY FURTHER NEEDS. CALL LIGHT IN REACH. BED ALARM ON FOR SAFETY.
[2024-09-14 05:36] LABS: BASOPHILS 0.9 % (0-2); EOSINOPHILS 9.9 % (0-6); HEMATOCRIT 34.7 % (35.0-50.0); HEMOGLOBIN 11.7 g/dL (12.0-18.0); LYMPHOCYTES 37.3 % (24-44); MCH 29.4 (27-36); MCHC 33.6 g/dl (30-36); MCV 87.5 fl (81-99); MONOCYTES 6.8 % (0-12); NEUTROPHILS 45.1 % (39-80); PLATELET COUNT 360 K/uL (140-440); RBC 3.97 M/ul (4.3-5.7)
[2024-09-14 05:56] LABS: ALBUMIN 2.6 g/dL (3.4-5.0); ALBUMIN/GLOBULIN RATIO 0.84 (1.1-2.4); ANION GAP 7.1 (7-21); BILIRUBIN, TOTAL 0.4 ng/dL (0.2-1.0); BUN/CREATININE RATIO 12.96 (6.0-28.6); CALCIUM 8.3 mg/dL (8.5-10.1); CREATININE, SERUM 0.54 mg/dL (0.55-1.02); MAGNESIUM 1.8 mg/dL (1.8-2.4); POTASSIUM 4.1 mmol/L (3.5-5.1); PROTEIN, TOTAL 5.7 g/dL (6.4-8.2)
--- NOTE | 2024-09-14 07:20 | NUR ---
REPORT RECEIVED FROM WEB CONTENT DIRECTOR RN. PATIENT RESTING IN BED LAYING ON HER RIGHT SIDE. RESPIRATIONS EVEN AND UNLABORED. NO NEEDS AT THIS TIME. CALL LIGHT WITHIN REACH. BED ALARM ON.
--- NOTE | 2024-09-14 08:24 | NUR ---
PATIENT ASSISTED TO BSC WITH 2 PA ASSIST. PATIENT UNSTEADY ON FEET. CONTINUES TO PRESENT WITH CONFUSION. BEDDING CHANGED. NEW GOWN PUT ON. IV SITE PATENT AND WNL. AM BLOOD SUGAR OBTAINED. ASSESSMENT COMPLETE CIWA OF 5 THIS AM. C/O BACK AND RIGHT HIP PAIN. PRN ADMINSTERED. VARGHESE DRAINING YELLOW URINE. BOWEL TONES ACTIVE X 4. LUNGS CLEAR AND DIM IN THE BASES. BREAKFAST SET UP FOR PATIENT. BED ALARM DOUBLE END TENONER OPERATOR LIGHT WITHIN REACH.
[2024-09-14] MEDS ORDERED: LIDOCAINE HCL 4% 1 EACH PATCH TD SCH (09:37)
--- NOTE | 2024-09-14 10:03 | NUR ---
PATIENT WORKING WITH PT. STANDING WEIGHT OBTAINED. LIDO PATCH PLACED ON LOWER BACK. PT REMAINS IN ROOM WITH PATIENT AT THIS TIME.
--- NOTE | 2024-09-14 11:02 | NUR ---
PATIENT RESTING IN RECLINER. CHAIR ALARM IN PLACE. DENIES NEEDS AT THIS TIME. CALL LIGHT WITHIN REACH.
--- NOTE | 2024-09-14 12:15 | NUR ---
PATIENT SITTING UP IN RECLINER EATING LUNCH. PATIENT ABLE TO FEED SELF WELL. NOT SPILLING FOOD SHE TAKES BITES. PATIENT CIWA SCORE BELOW 8 AT THIS TIME. VSS. IV SITE REMAINS WNL. CHAIR ALARM IN PLACE. CALL LIGHT WITHIN REACH.
--- NOTE | 2024-09-14 13:31 | NUR ---
PATIENT REQUESTING TO GO BACK TO BED. PATIENT TRANSFERED FROM RECLINER TO BED WITH 1 PA ASSIST AND FWW. TOLLERATED WELL. STEADY ON FEET. REPORTS FEELING DIZZY. PATIENT WITH NO FURTHER NEEDS. CALL LIGHT WITHIN REACH. BED ALARM ON.
--- NOTE | 2024-09-14 14:06 | NUR ---
PATIENT REPORTS FEELING INCREASED ANXIETY AND RESTLESSNESS. NEW CIWA COMPLETED. PRN ADMINSTERED. SEE MAR.
--- NOTE | 2024-09-14 16:28 | NUR ---
PATIENT CALLING OUT FOR "NURSE". C/O PAIN PRN ADMINSTERED. NO FURTHER NEEDS CALL LIGHT WITHIN REACH. BED ALARM ON.
--- NOTE | 2024-09-14 16:57 | NUR ---
Pt report received from LIANNE Santana.
--- NOTE | 2024-09-14 17:20 | NUR ---
REPORT GIVEN TO MED SURG NURSE. PATIENT TRANSFERED TO MED SURG UNIT VIA BED.
--- NOTE | 2024-09-14 17:26 | NUR ---
Pt transferred to room 121 by LIANNE Santana, via bed. Pt is A&O x4, skin intact, VSS. Call light in reach, side rails up. CBG 93.
--- NOTE | 2024-09-14 19:35 | NUR ---
Obtained verbal order from Dr. Galicia for Melatonin 3mg PO QHS for insomnia as well as Trazadone 25mg PO QHSPRN for insomnia
--- NOTE | 2024-09-14 19:44 | NUR ---
RECEIVED REPORT FROM LIANNE PEREA. PT RESTING, ASKING ABOUT SLEEPING MED. WILL ADMINISTER W/ HS MEDS.
[2024-09-14] MEDS ORDERED: MELATONIN 3 MG TAB PO PRN (19:45)
[2024-09-14] MEDS ORDERED: TRAZODONE HCL 50 MG TAB PO PRN (19:45)
[2024-09-14] MEDS ORDERED: LIDOCAINE PATCH REMOVAL 1 EA TD SCH (21:00)
--- NOTE | 2024-09-14 21:00 | NUR ---
PT RESTING IN BED. RESTLESS. CALLED FOR SLEEPING MEDS, PRN MELATONIN ADMINISTERED. A&Ox4. CALLS APPROPRIATELY. LSC DIM, O2 1L NC. CPOX IN PLACE. HRR. BTA. LBM 09/13. VARGHESE W/ CLEAR YELLOW URINE. VARGHESE CARE PROVIDED BY MOO MUSA. LFA IV INFUSING NS. BEDDING AND GOWN CHANGED. CIWA SCORE 1. CALL LIGHT WITHIN REACH.
--- NOTE | 2024-09-14 21:25 | NUR ---
MANAGER SERVICE DESK CHANGED PT DRAW SHEET AND CHUCKS PAD. MANAGER SERVICE DESK PREFROMED CATHETER CARE. MANAGER SERVICE DESK THEN OBTAINED VITALS AND I&O. PT STATES NO FURTHER NEEDS AT THIS TIME. CALL LIGHT WITHIN REACH.
--- NOTE | 2024-09-14 22:30 | NUR ---
PT SLEEPING, APPEARS COMFORTABLE. CALL LIGHT WITHIN REACH.
[2024-09-15] VITALS (8 sets, daily range): BP systolic 112–148; BP diastolic 73–90
--- NOTE | 2024-09-15 00:18 | NUR ---
PT APPEARS ASLEEP, SOMEWHAT FIDGETY IN SLEEP. IVF INFUSING.
--- NOTE | 2024-09-15 01:00 | NUR ---
PT AWAKE, REPORTS BACK PAIN, MEDICATED W/ PRN IV DILAUDID. ALSO REPORTS INABILITY TO STAY ASLEEP, REQUESTED ADDITIONAL SLEEP AIDE-PRN TRAZADONE GIVEN. NEW BAG NS ATTILA. EXTRA BLANKETS GIVEN PER REQUEST.
--- NOTE | 2024-09-15 04:13 | NUR ---
PT SLEEPING SOUNDLY, APPEARS COMFORTABLE.
[2024-09-15 05:33] LABS: EOSINOPHILS 9.3 % (0-6); HEMATOCRIT 33.5 % (35.0-50.0); HEMOGLOBIN 11.2 g/dL (12.0-18.0); LYMPHOCYTES 34.8 % (24-44); MCH 29.3 (27-36); MCHC 33.3 g/dl (30-36); MCV 88.1 fl (81-99); MONOCYTES 6.6 % (0-12); NEUTROPHILS 48.3 % (39-80); PLATELET COUNT 355 K/uL (140-440); RDW 13.8 (10.5-15.0)
[2024-09-15 05:47] LABS: ALBUMIN 2.6 g/dL (3.4-5.0); ALBUMIN/GLOBULIN RATIO 0.87 (1.1-2.4); ANION GAP 9.9 (7-21); BILIRUBIN, TOTAL 0.2 ng/dL (0.2-1.0); BUN/CREATININE RATIO 16.36 (6.0-28.6); CALCIUM 8.4 mg/dL (8.5-10.1); CREATININE, SERUM 0.55 mg/dL (0.55-1.02); MAGNESIUM 1.8 mg/dL (1.8-2.4); POTASSIUM 3.9 mmol/L (3.5-5.1); PROTEIN, TOTAL 5.6 g/dL (6.4-8.2)
--- NOTE | 2024-09-15 06:11 | NUR ---
MOO AND PRIMARY RN OBTAINED VITALS AND I&O. VARGHESE CATH EMPTIED. PT ICE WATER REFILLED. PT STATES NO FURTHER NEEDS AT THIS TIME. CALL LIGHT WITHIN REACH.
--- NOTE | 2024-09-15 07:14 | NUR ---
Pt report received from LIANNE Stark. Pt is A&O, in bed, watching television. Pt states she didn't sleep much last night. Pt denies any needs at this time. White board updated, call light in reach, side rails up x4.
--- NOTE | 2024-09-15 08:29 | NUR ---
PATIENT IN BED AT THIS TIME. CHIEF OF VITAL STATISTICS WENT INTO PATIENTS ROOM FOR HOURLY ROUNDS AND BLOOD SUGAR. CALL LIGHT WITHIN REACH, NO FURTHER NEEDS AT THIS TIME.
--- NOTE | 2024-09-15 10:15 | NUR ---
In with pt to D/C IV, cath intact, pressure bandage applied. Gave pt sips of cold water at her request and used lemon swab on her dry lips. Pt tolerated both well.
--- NOTE | 2024-09-15 10:41 | NUR ---
PATIENT IN BED AT THIS TIME. SPRINKLER FITTER CHARTED PATIENTS VITALS AND I&O'S. CALL LIGHT WITHIN REACH, NO FURTHER NEEDS AT THIS TIME.
--- NOTE | 2024-09-15 10:43 | NUR ---
HYDROELECTRIC OPERATOR ASSISTED PATIENT FROM CHAIR BACK TO BED. CALL LIGHT WITHIN REACH, NO FURTHER NEEDS AT THIS TIME.
[2024-09-15] MEDS ORDERED: buprenorphine HCL 2 MG TAB.SUBL SL SCH (12:03)
--- NOTE | 2024-09-15 13:00 | NUR ---
Today Yulia is up in her bedside chair and eating her lunch, she feels her lunch was "good", and her care has been o.k. Yulia still desires to follow-up with [facility] on discharge. She has previously been provided with information for [facility] and other community services. She agrees that she would like to follow-up in this direction. She has no questions for me at this time, she does want to get ahold of her son prior to discharge so that she can let him know that she is going into recovery. She wants to make that call after she has talked to [facility]. Patient desires to go back to bed and "take a nap" staff notified.
--- NOTE | 2024-09-15 19:15 | NUR ---
REPORT RECEIVED FROM BRIT ABDALLA. BOARD UPDATED. pt RESTING IN THE BED. CALL LIGHT WITHIN REACH. NO NEEDS AT THIS TIME.
--- NOTE | 2024-09-15 20:50 | NUR ---
ASSESSMENT AND VITAL SIGNS DONE. SCHEDULED AND PRN MADICATION ADMINISTERED. CWAH NEGATIVE AT THIS TIME. pt BG CHECKED WITH A RESULTS OF 115 AT THIS TIME. pt DENIES ANY OTHER NEEDS AT THIS TIME. VARGHESE CARE DONE. CALL LIGHT WITHIN REACH.
--- NOTE | 2024-09-15 23:00 | NUR ---
pt C/O 05/27 PAIN. PRN PAIN MEDS ADMINISTERED. pt DENIES ANY OTHER NEEDS AT THIS TIME. CALL LIGHT WITHIN REACH.
[2024-09-16] VITALS (8 sets, daily range): BP systolic 126–145; BP diastolic 57–78
--- NOTE | 2024-09-16 01:15 | NUR ---
pt RESTING IN THE BED. pt DENIES ANY NEEDS AT THIS TIME. STATE HER PAIN IS BETTER BUT SHE IS STILL FEELING LIKE SHE CANT SLEEP. CALL LIGHT WITHIN REACH.
--- NOTE | 2024-09-16 03:00 | NUR ---
pt RESTING IN THE BED WITH EYES OPEN. pt DENIES ANY NEEDS AT THIS TIME. CALL LIGHT WITHIN REACH.
[2024-09-16 05:22] LABS: EOSINOPHILS 7.6 % (0-6); HEMOGLOBIN 11.6 g/dL (12.0-18.0); LYMPHOCYTES 28.9 % (24-44); MCH 29.6 (27-36); MCHC 34.1 g/dl (30-36); MCV 86.8 fl (81-99); MONOCYTES 6.6 % (0-12); NEUTROPHILS 55.9 % (39-80); PLATELET COUNT 359 K/uL (140-440); RBC 3.92 M/ul (4.3-5.7)
--- NOTE | 2024-09-16 05:23 | NUR ---
PATIENTS VITALS TAKEN AND RECORDED. VARGHESE EMPTIED. INTAKE AND OUTPUT RECORDED. PATIENT DENIES ANY PAIN OR SOB. PATIENT PROVIDED TEA. PATIENT DENIES ANY FURTHER NEEDS. CALL LIGHT IN REACH. BED ALARM ON FOR SAFETY. IV INFUSING PER ORDER.
[2024-09-16 05:34] LABS: ANION GAP 10.8 (7-21); BUN/CREATININE RATIO 14.54 (6.0-28.6); CALCIUM 8.9 mg/dL (8.5-10.1); CREATININE, SERUM 0.55 mg/dL (0.55-1.02); MAGNESIUM 1.8 mg/dL (1.8-2.4); PHOSPHORUS, INORGANIC 3.4 mg/dL (2.5-4.9); POTASSIUM 3.8 mmol/L (3.5-5.1)
--- NOTE | 2024-09-16 06:33 | NUR ---
VARGHESE CATHETER REMOVED AND CPOX REMOVED PER ORDER. pt TOLERATED WELL. NO OTHER NEEDS AT THIS THIS TIME. CALL LIGHT WITHIN REACH.
--- NOTE | 2024-09-16 07:06 | NUR ---
CALL LIGHT ANSWERED. PT NEEDED TO USE BATHROOM. MEDICAL OFFICE MANAGER SBA WITH FWW TO BATHROOM. PT VOIDED. VOID MISSED HAT. PT THEN ASSISTED BACK TO BED. PT STATES NO FURTHER NEEDS AT THIS TIME. CALL LIGHT WITHIN REACH.
--- NOTE | 2024-09-16 07:47 | NUR ---
GOT REPORT FROM MOLECULAR BIOLOGY SCIENTIST NURSE.
--- NOTE | 2024-09-16 09:08 | NUR ---
PATIENT GIVEN MORNING MEDICATIONS. PAIN PATCH PLACED ON BACK. PATIENT UP IN CHAIR EATING BREAKFAST. IV FLUIDS RUNNING. PATIENT HAS FEET ELEVATED. FRESH WATER. TV ON. PATIENT DENIES ANY CARES AT THIS TIME.
--- NOTE | 2024-09-16 10:26 | NUR ---
MORNING ASSESSMENT DONE. PATIENT BACK TO BED TO REST HER BACK. PATIENT GIVEN WARM BLANKET. WATER AT BEDSIDE. CALL LIGHT WITHIN REACH. PATIENT DENIES ANY CARES AT THIS TIME. ROOM CLEANED UP.
--- NOTE | 2024-09-16 12:09 | NUR ---
PT IN ROOM WORKING WITH PATIENT HELPING HER TO THE RESTROOM.
--- NOTE | 2024-09-16 13:10 | NUR ---
REPORT RECEIVED FROM ALPESH RN, PRIMARY CARE ASSUMED FOR PT. PT SITTING UP IN CHAIR EATING LUNCH WATCHING TV. CHAIR ALARM ON. CALL LIGHT IN REACH.
[2024-09-16] MEDS ORDERED: ALBUTEROL SULFATE 0.083% 3 ML VIAL INH PRN (14:45)
--- NOTE | 2024-09-16 18:47 | NUR ---
patient up to br w 1pa fww. back to bed. patient has no other requests at this time. call light within reach.
--- NOTE | 2024-09-16 19:35 | NUR ---
RECEIVED REPORT FROM DAY SHIFT RN. PATIENT IS RETURNING TO BED FROM BSC. PATIENT DENIES ANY NEEDS. CALL LIGHT IN REACH.
[2024-09-16] MEDS ORDERED: ALBUTEROL/IPRATROPIUM 3 ML NEB INH SCH (20:00)
--- NOTE | 2024-09-16 20:59 | NUR ---
PATIENT ASSISTED TO THE BSC A 1PA. PATIENT ABLE TO VOID AND COMPLETE SELF CARE. PATIENT IS BACK IN BED RESTING. PATIENTS VITALS TAKEN AND RECORDED. PATIENTS INTAKE AND OUTPUT RECORDED. OM MEDS GIVEN PER ORDER. PATIENT REQUESTED SLEEP AID, PRN SLEEP AID GIVEN PER ORDER. PATIENTS IV INFUSIGN PER ORDER. PATIENT RATES PAIN AT A 4/10 AND DENIES THE NEED FOR PAIN MEDICATION AT THIS TIME. ASSESMENT COMPLETED. PATIENT REMAINS ON 1L VIA NC AND DENIES ANY SOB. PATIENT DENIES ANY FURTHER NEEDS. CALL LIGHT IN REACH. BED ALARM ON FOR SAFETY.
--- NOTE | 2024-09-16 21:50 | NUR ---
PATIENT CALLED AND REPORTED BEING UNABLE TO SLEEP, PRN SLEEP AID GIVEN PER ORDER. PATIENT RATES 10/10 BACK PAIN, PRN PAIN MEDICATION GIVEN PER ORDER. PATIENT IS RESTING IN BED WATCHING TV. PATIENT PROVIDED SLEEPY TIME TEA. PATIENT DENIES ANY FURTHER NEEDS. CALL LIGHT IN REACH. BED ALARM ON FOR SAFETY. IV INFUSING PER ORDER.
--- NOTE | 2024-09-16 22:47 | NUR ---
PATIENT IS RESTING IN BED WATCHING TV. PATIENT DENIES ANY NEEDS. CALL LIGHT IN REACH. BED ALARM ON FOR SAFETY. IV INFUSING PER ORDER.
[2024-09-17] VITALS (9 sets, daily range): BP systolic 108–141; BP diastolic 72–95
--- NOTE | 2024-09-17 00:28 | NUR ---
PATIENT ASSISTED TO THE BSC A 1PA. PATIENT ABLE TO VOID AND COMPLETED SELF CARE. PATIENT BACK IN BED RESTING. PATIENT DENIES ANY PAIN OR SOB. PATIENT REMAINS ON 1L VIA NC. PATIENT PROVIDED WARM BLANKET AND DECAF TEA. PATIENT DENIES ANY FURHTER NEEDS. CALL LIGHT IN REACH. BED ALARM ON FOR SAFETY. IV INFUSING PER ORDER.
--- NOTE | 2024-09-17 02:16 | NUR ---
PATIENT ASSISTED TO THE BSC A 1PA. PATIENT ABLE TO VOID. PATIENT IS BACK IN BED RESTING. SNACK PROVIDED. PATIENT DENIES ANY FURTHER NEEDS. CALL LIGHT IN REACH. IV INFUSING PER ORDER. BED ALARM ON FOR SAFETY.
--- NOTE | 2024-09-17 04:02 | NUR ---
PATIENT ASSISTED TO THE BSC A 1PA. PATIENT ABLE TO VOID. PATIENT IS BACK IN BED RESTING. PATIENT DENIES ANY PAIN. PATIENT PROVIDED WARM BLANKETS. PATIENT LADONNA ANY NEEDS. CALL LIGHT IN REACH. BED ALARM ON FOR SAFETY. IV INFUSING PER ORDER.
--- NOTE | 2024-09-17 06:15 | NUR ---
PATIENT ASSISTED TO THE BSC A SBA. PATIENT ABLE TO VOID. PATIENT IS BACK IN BED RESTING. PATIENT REPORTS 9/10 PAIN IN HER BACK, PRN PAIN MEDICATION GIVEN PER ORDER. PATIENT REMAINS ON 1L VIA NC AND DENIES ANY SOB. PATIENT DENIES ANY FURTHER NEEDS. CALL LIGHT IN REACH. BED ALARM ON FOR SAFETY. IV INFUSING PER ORDER.
--- NOTE | 2024-09-17 07:15 | NUR ---
REPORT RECIVED FROM NIGHT RN - PT MISTIG IN BED AWAKE WATCHING TV. CALL LIGHT IN REACH.
[2024-09-17] MEDS ORDERED: POLYETHYLENE GLYCOL 3350 1 PACKET PO SCH (10:17)
--- NOTE | 2024-09-17 14:01 | NUR ---
PATIENT REFUSED SHOWER X2, NO OTHER NEEDS OR REQUESTS AT THIS TIME. CALL LIGHT WITHIN REACH, CHAIR ALARM ON.
--- NOTE | 2024-09-17 14:15 | NUR ---
PT WALKING IN HALLWAY WITH PHYSICAL THERAPIST.
--- NOTE | 2024-09-17 19:20 | NUR ---
RECEIVED REPORT FROM DAY SHIFT RN. PATIENT IS RESTING IN BED WATCHING TV. PATIENT DENIES ANY NEEDS. CALL LIGHT IN REACH. BED ALARM ON FOR SAFETY.
--- NOTE | 2024-09-17 20:27 | NUR ---
PATIENTS VITALS TAKEN AND RECORDED. INTAKE AND OUTPUT RECORDED. PM MEDS GIVEN PER ORDER. PATIENTS BS WNL AND NO SS GIVEN PER ORDER. PATIENT RATES PAIN AT A 5/10 PAIN IN HER BACK, WARM PACK PROVIDED. PATIENT DENIES ANY NAUSEA. PATIENTS IV FLUSHED AND SL PER ORDER. PATIENT DENIES ANY FURTHER NEEDS. PATIENTS ASSEMENT COMPLETED. PATIENT REMAINS ON 1L VIA NC. CALL LIGHT IN REACH. BED ALARM ON FOR SAFETY.
--- NOTE | 2024-09-17 21:33 | NUR ---
PATIENT REQUESTED ADDITIONAL SLEEP AID, PRN SLEEP AID GIVEN PER ORDER. PATIENT IS RESTING IN BED. PATIENTS LIGHTS TURNED OFF AND TV TURNED DOWN. PATIENT DENIES ANY FURTHER NEEDS. CALL LIGHT IN REACH. BED ALARM ON FOR SAFETY.
[2024-09-17] MEDS ORDERED: INHALER, ASSIST DEVICES 1 EACH SPACER MISC SCH (22:00)
--- NOTE | 2024-09-17 22:07 | NUR ---
PATIENT IS RESTING IN BED WATCHING TV. PATIENT DENIES ANY NEEDS. CALL LIGHT IN REACH. BED ALARM ON FOR SAFETY.
--- NOTE | 2024-09-17 22:44 | NUR ---
BED ALARM ALERTED STAFF. PATIENT ASSISTED TO THE BSC A SBA. PATIENT ABLE TO VOID. PATIENT IS BACK IN BED RESTING. PATIENT PROVIDED WARM BLANKET. NO FURTHER NEEDS NOTED. CALL LIGHT IN REACH. BED ALARM ON FOR SAFETY.
--- NOTE | 2024-09-17 23:18 | NUR ---
PATIENT ASSISTED TO THE BSC A SBA. PATIENT ABLE TO VOID. PATIENT IS BACK IN BED RESTING. PATIENT DENIES ANY FURTHER NEEDS. CALL LIGHT IN REACH. BED ALARM ON FOR SAFETY.
[2024-09-18] VITALS (8 sets, daily range): BP systolic 116–132; BP diastolic 54–68
--- NOTE | 2024-09-18 00:07 | NUR ---
PATIENT IS RESTING IN BED WATCHING TV. PATIENT DENIES ANY NEEDS. CALL LIGHT IN REACH. BED ALARM ON FOR SAFETY.
--- NOTE | 2024-09-18 00:39 | NUR ---
PATIENT ASSISTED TO THE BSC A 1PA. PATIENT ABLE TO VOID. PATIENT IS BACK IN BED RESTING. PATIENT REPORTS PAIN IN HER RIGHT THIGH. LOTION APPLIED TO RIGHT THIGH AND HIP. PATIENT PROVIDED ICE PACK FOR RIGHT THIGH. PATIENT PROVIDED FRESH ICE WATER. PATIENT DENIES ANY FURTHER NEEDS. CALL LIGHT IN REACH. BED ALARM ON FOR SAFETY.
--- NOTE | 2024-09-18 01:47 | NUR ---
BED ALARM ALERTING STAFF. PATIENT STATED "I NEED TO GET UP AND START COOKING FOR THANKSGIVING". PATIENT EDUCATED THAT THANKSGIVING HAS PASSED. THIS RN ASKED PATIENT IF SHE KNEW WHERE SHE WAS. PATIENT STATED "[facility]". PATEINT REORIENTED. BRII EDUATED ON PLAN OF CARE IN HOSPITAL AND ALL QUESTIONS ANSWERED. PATIENT VERBALIZED UNDERSTANDING. PATIENT PROVIDED SNACK PER REQUEST. PATIENT DENIES ANY FURTHER NEEDS. CALL MANI BARRIGA. BED ALARM ON FOR SAFETY.
--- NOTE | 2024-09-18 03:29 | NUR ---
PATIENT UP TO BS A 1PA. PATIENT ABLE TO VOID. PATIENT IS BACK IN BED RESTING. PATIENT DENIES ANY FURTHER NEEDS. CALL LIGHT IN REACH.
--- NOTE | 2024-09-18 04:00 | NUR ---
PATIENT IS RESTING IN BED WITH EYES CLSOED, RR 17. CALL LIGHT IN REACH. BED ALARM ON FOR SAFETY.
--- NOTE | 2024-09-18 05:02 | NUR ---
PATIENT UP TO BSC A 1PA. PATIENT ABLE TO VOID AND COMPLETE SELF CARE. PATIENT IS BACK IN BED RESTING. PATIENT PROVIDED WARM PACK FOR PAIN IN HER RIGHT HIP AND THIGH. PATIENT PROVIDED WARM BLANKET AND FRESH ICE WATER. PATIENT DENIES ANY SOB AND REMAINS ON 1L VIA AK. PATIENTS VITALS TAKEN AND RECORDED. INTAKE AND OUTPUT RECORDED. PATIENT DENIES ANY FURTHER NEEDS. CALL LIGHT IN REACH. BED ALARM ON FOR SAFETY.
--- NOTE | 2024-09-18 06:37 | NUR ---
PATIENT ASSISTED TO THE BSC A 1PA. PATIENT ABLE TO VOID. PATIENT IS BACK IN BED RESTING. PATIENT REPORTS PAIN IN HER HIPS AND THIGHS BILATERALLY. LOTION APPLIED AND WARM PACK APPLIED. PATIENT DENIES ANY FURTHER NEEDS. CALL LIGHT IN REACH.
--- NOTE | 2024-09-18 09:00 | NUR ---
PATIENT IN BED AT THIS TIME. AIRPORT ATTENDANT ASSISTED PATIENT FROM BED TO BEDSIDE COMMODE AND THEM BACK TO BED. AIRPORT ATTENDANT ALSO CHARTED VITALS AND I&O'S. CALL LIGHT WITHIN REACH, NO FURTHER NEED AT THIS TIME.
--- NOTE | 2024-09-18 09:00 | NUR ---
PT SITTING UP IN BED WATCHING TV AFTER FINISHING BREAKFAST. ASSESSMENT COMPLETE. RATES PAIN 10/10 IN LOWER BACK - SCHEDULED SUBOXONE ADMINISTERED. . ALSO COMPLAINS OF CONSTIPATION, HAVING HARD "PELLETS" - MIRILAX ADMINISTERED. IV SITE WNL WITH FLUSH. DENIES NEEDS AT THIS TIME. CALL LIGHT IN REACH.
--- NOTE | 2024-09-18 09:43 | NUR ---
SPOKE WITH SEPIDEH WITH [facility]. PEER WILL BE UP THIS MORNING TO SPEAK WITH PATIENT. LIANNE HILL UPDATED.
--- NOTE | 2024-09-18 10:07 | NUR ---
Upon entry to room patient is in bed, eyes closed, responds immediately to verbal stimulation, states "I feel tired today." Has no complaints at this time, IMM letter explained. Signed without hesitation by Yulia. Yulia also requests at discharge that she be provided with pants, shirt, coat, gloves and hat. Will try to accomodate through clothing donated to the hospital. Copy of signed letter provided to the patient.
--- NOTE | 2024-09-18 10:47 | NUR ---
PATIENT IN BED AT THIS TIME. COLLECTIONS OFFICER CHARTED VITALS AND I&O'S. COLLECTIONS OFFICER ASSISTED PATIENT TO BEDSIDE COMMODE AND THEN BACK TO BED. CALL LIGHT WITHIN REACH, NO FURTHER NEEDS AT THIS TIME.
--- NOTE | 2024-09-18 12:14 | NUR ---
RN IN ROOM TO RESPOND TO BED ALARM. PT ON PHONE WITH SON AND DISORIENTED TO PLACE AND TIME. PT ASKING TO RECONNECT NC BECAUSE IT IS MAKING A NOISE. PT REORIENTED AND PROVIDED LUNCH. DENIES NEEDS AT THIS TIME. BED ALARM ON.
--- NOTE | 2024-09-18 14:54 | NUR ---
PT NOT AVAILABLE FOR VISIT. PROVIDED PRAYER.
--- NOTE | 2024-09-18 16:45 | NUR ---
PT BACK TO ROOM AFTER TAKING A WALK WITH THIS RN - PT USED FWW APPROPRIATLY AND STATES IT HELPED HER BACK PAIN. PT IN [employer] TALKING ABOUT HER [employer] CHIL[employer] MEMORIES. PROVIDED SPARE READING GLASSESS.
--- NOTE | 2024-09-18 18:00 | NUR ---
RN IN ROOM WITH ELKIN - PT ALERT AND REQUESTING TO EAT DINNER. MINCED AND MOIST DINNER TRAY PROVIDED AND PT EATING BITES FED TO HER. UPDATED PLAN OF CARE DISCUSSED WITH ELKIN WHO WAS NOT AWARE OF MD AND ELDER CONVERSTATIONS HAD EARLIER TODAY. OPTIONS FOR LEAVING ON HOSPICE BACK TO [facility] SHE CURRENTLY LIVES IN OR FACILITY EXPLAINED. JOVANY MADE AWARE CURRENT CAREGIVER HAS AGREED TO HAVE HER BACK ON HOSPICE. ENCOURAGED FAMILY TO CONTINUE DISCUSSIONS REGARDING WHAT IS BEST FOR PT AT END OF LIFE. PT CURRENLTY DENIES PAIN AND DENIES NEEDS.
--- NOTE | 2024-09-18 19:05 | NUR ---
REPORT RECEIVED FROM BONNIE ABDALLA. pt RESTING IN THE BED. BOARD UPDATED. pt DENIES ANY NEEDS AT THIS TIME. CALL LIGHT WITHIN REACH.
--- NOTE | 2024-09-18 21:25 | NUR ---
ASSESSMENT AND VITAL SIGNS DONE. pt UP TO THE BR WITH FWW. SCHEDULED AND PRN MEDS ADMINISTERED. pt DENIES ANY OTHER NEEDS AT THIS TIME. CALL LIGHT WITHIN REACH.
--- NOTE | 2024-09-18 23:00 | NUR ---
pt RESTING IN THE BED. TV TURNED OFF. pt DENIES ANY NEEDS AT THIS TIME. CALL LIGHT WITHIN REACH.
[2024-09-19] VITALS (7 sets, daily range): BP systolic 117–147; BP diastolic 74–81
--- NOTE | 2024-09-19 01:02 | NUR ---
BED ALARM ALARMING. pt SITTING UP TO USE BR. THIS RN IN RM TO HELP pt TO USE THE BR WITH FWW. BED ALARM BACK ON. pt DENIES ANY OTHER NEEDS AT THIS TIME. CALL LIGHT WITHIN REACH.
--- NOTE | 2024-09-19 01:38 | NUR ---
BED ALARM ALARMING. pt SBA TO THE BR WITH FWW. pt BACK TO BED. BED ALARM ON. pt DENIES ANY OTHER NEEDS AT THIS TIME. CALL LIGHT WITHIN REACH.
--- NOTE | 2024-09-19 03:16 | NUR ---
pt RESTING IN THE BED WITH EYES CLOSED. RR EVEN AND UNLABORED. CALL LIGHT WITHIN REACH.
--- NOTE | 2024-09-19 06:25 | NUR ---
ASSESSMENT AND VITAL SIGNS DONE. pt UP TO THE BR WITH SBA VIA FWW. pt BACK TO BED. BED ALARM BACK ON. pt DENIES ANY OTHER NEEDS AT THIS TIME. CALL LIGHT WITHIN REACH.
--- NOTE | 2024-09-19 07:36 | NUR ---
RECEIEVED MORNING REPORT FROM PRACTICE LEAD RN, PT RESTING IN BED WITH EYES CLOSED CHEST RISE EQUAL BILAT. PT HAS NO CONCERNS AT THIS TIME CALL LIGHT WITHIN REACH.
--- NOTE | 2024-09-19 08:20 | NUR ---
PT LAYING IN BED WITH EYES CLOSED RESTING WITH EQUAL CHEST RISE BILAT. PT BED ALARM ON FOR PT SAFETY WITH CALL LIGHT WIHIN REACH.
--- NOTE | 2024-09-19 08:43 | NUR ---
PATIENT IN BED AT THIS TIME. CFA WENT INTO PATIENTS ROOM FOR HOURLY ROUNDS. CALL LIGHT WITHIN REACH, NO FURTHER NEEDS AT THIS TIME.
--- NOTE | 2024-09-19 09:15 | NUR ---
PT SITTING UPRIGHT IN BED FINISHING UP BREAKFAST PT HAS NO REQUESTS AT THIS TIME. PT BED ALARM ON AND CALL LIGHT WITHIN REACH.
[2024-09-19] MEDS ORDERED: IPRAT-ALBUT 0.5-3 ML INH (10:04)
[2024-09-19] MEDS ORDERED: BUPRENORPHINE HC8 MG SL (10:08)
[2024-09-19] MEDS ORDERED: ALBUTEROL2.5 MG/3 M INH (10:08)
[2024-09-19] MEDS ORDERED: BUPRENORPHINE HC2 MG SL (10:08)
[2024-09-19] MEDS ORDERED: MIRTAZAPINE45 MG PO (10:09)
[2024-09-19] MEDS ORDERED: VITAMIN B-1100 MG PO (10:17)
[2024-09-19] MEDS ORDERED: LIDOCAINE PAIN1 EACH TD (10:17)
--- NOTE | 2024-09-19 10:31 | NUR ---
PATIENT IN BED AT THIS TIME. BUNCHER MACHINE CHARTED VITALS AND I&O'S. BUNCHER MACHINE ALSO ASSISTED PATIENT TO THE BATHROOM AND THEN RN ASSISTED PATIENT FROM BATHROOM BACK TO BED.
--- NOTE | 2024-09-19 10:39 | NUR ---
PT AMBULATED BACK TO BED FROM RESTROOM, TOLERATED WELL. PT'S O2 SAT ON RA 93% AFTER AMBULATION.
--- NOTE | 2024-09-19 10:40 | NUR ---
Attempted to speak with pt and she is on the phone with her sister. I will return later. Per 8:30 meeting pt will dc today.
--- NOTE | 2024-09-19 10:50 | NUR ---
Notified by PT, pt will need a walker to leave. Spoke with Dr. Galicia and proper documentation added for a walker. I called [facility] [place] and they are in town and have walker in their van. I spoke with pt and she states she is fine using either [employer] or [facility]. Let her know [employer] had called and will deliver with next oxygen delivery. This could be 96 hrs. Pt will go with [facility] [place]. Chart faxed with orders and I called and cancelled the [employer] order as it cannot be delivered in a timely manner. Received a call back from Shira at [facility] [place]. They have all the documentation needed and will deliver before 1 pm.
--- NOTE | 2024-09-19 11:00 | NUR ---
Spoke with pt. She plans on dc today. She would like to go to [facility] and then home on dc. She states she would like to go to an IP alcohol rehab. I called [facility]. They have two people out sick and have not been able to see this pt in the hospital. Pt can see at Peer at [facility] and we will dc her there. Will plan for dc around 1 or 1:30. Will send an extra taxi ticket for transport from [facility] to home. Pt states she does not have her purse of house keys. I will try to find the manager retention for the security apartments to see if someone can let her in.
--- NOTE | 2024-09-19 11:06 | NUR ---
PATIENT IN CHAIR AT THIS TIME. QUALITY OFFICER WENT INTO PATIENTS ROOM FOR HOURLY ROUNDS, RN MOVED PATIENT TO CHAIR AT THIS TIME. CALL LIGHT WITHIN REACH, NO FURTHER NEEDS AT THIS TIME.
--- NOTE | 2024-09-19 11:15 | NUR ---
PT ASSISTED TO CHAIR PREPARING FOR DISCHARGE. PT IS FORGETFUL THAT SHE DID NOT ARRIVE WITH A PURSE. PT REMINDED SHE DID NOT HAVE PURSE AND AGREED SHE LEFT IT AT HOME. PT SITTING IN CHAIR WITH CHAIR ALARM ON AND CALL LIGHT WITHIN REACH.
[2024-09-19] MEDS ORDERED: VENTOLIN HFA18 GM INH (11:50)
[2024-09-19] MEDS ORDERED: IPRATROPIU0.2 MG/1 M INH (11:51)
--- NOTE | 2024-09-19 12:15 | NUR ---
PT SITTING IN CHAIR COMFORTABLY, PT UPDATED ON DISCHARGE STATUS AND PT WAS COMPLIANT. PT STATES NO NEEDS AT THIS TIME CHAIR ALARM ON FOR PT SAFETY AND CALL LIGHT WITHIN REACH.
--- NOTE | 2024-09-19 13:30 | NUR ---
PT UPDATED ON DISCHARGE INFORMATION AND WAS COMPLIANT. PT SITTING IN CHAIR WITH CHAIR ALARM ON PT HAS NO CONCERNS AT THIS TIME CALL LIGHT WITHIN REACH
--- NOTE | 2024-09-19 13:45 | NUR ---
Called and spoke with [facility]. Plan for to DC shortly to [facility] and they will work with pt for IP alcohol rehab. I will send pt with her walker, 2 taxi tickets, and the phone number [employer] home instructional design manager. (I called Farrah at the [facility], she will let the pt in when she leaves [facility]). Pts purse and phone are in her apartment and her apartment has been unlocked. Maris Freeman when to [employer] and picked up pts meds and also bought pt a pain of tennis shoes for dc.
--- NOTE | 2024-09-19 14:37 | NUR ---
PT SITTING IN CHAIR WITH CHAIR ALARM ON. PT CURRENTLY WAITING TRANSPORT FOR DISCHARGE PT REPORTS NO NEEDS AT THIS TIME WITH CALL LIGHT WITHIN REACH.
--- NOTE | 2024-09-19 15:12 | NUR ---
PATIENT IN BED AT THIS TIME. LEATHER DRIER CHARTED VITALS AND I&O'S. CALL LIGHT WITHIN REACH, NO FURTHER NEEDS AT THIS TIME.
--- NOTE | 2024-09-19 16:11 | NUR ---
PT SITTING IN CHAIR VITALS DONE, PT HAS NO OTHER NEEDS AT THIS TIME PT WAITING [facility] OF TRANSPORTATION FOR DC.
== END 2024-09-19 16:30 | disposition home or self-care (01) | DRG 897 ==
LOC: ED 20:26 → MS 20:29 → CCU 09-11 10:54 → MS 09-11 10:54 → CCU 09-11 12:20 → MS 09-14 16:57
PROVIDERS: Internal Medicine; ADMIT Family Medicine; ATTEND Student in an Organized Health Care Education/Training Program
PROC: HZ2ZZZZ Detoxification Services for Substance Abuse Treatment (ICD-10-PCS; principal; 2024-09-10)
DX: F10.239 Alcohol dependence with withdrawal, unspecified (principal); S22.31XA Fracture of one rib, right side, initial encounter for closed fracture; N39.0 Urinary tract infection, site not specified; F10.229 Alcohol dependence with intoxication, unspecified; B96.20 Unspecified Escherichia coli [E. coli] as the cause of diseases classified elsewhere; M47.816 Spondylosis without myelopathy or radiculopathy, lumbar region; W19.XXXA Unspecified fall, initial encounter; Y90.7 Blood alcohol level of 200-239 mg/100 ml; D72.19 Other eosinophilia; T36.1X5A Adverse effect of cephalosporins and other beta-lactam antibiotics, initial encounter; J44.9 Chronic obstructive pulmonary disease, unspecified; I10 Essential (primary) hypertension; M06.9 Rheumatoid arthritis, unspecified; F31.9 Bipolar disorder, unspecified; F41.9 Anxiety disorder, unspecified; E83.42 Hypomagnesemia; E16.2 Hypoglycemia, unspecified; Z99.81 Dependence on supplemental oxygen; Z87.891 Personal history of nicotine dependence; Z86.19 Personal history of other infectious and parasitic diseases; Z88.8 Allergy status to other drugs, medicaments and biological substances; Z88.5 Allergy status to narcotic agent
CPT/HCPCS: 36415; 51702; 71045; 72131; 80048; 80053; 80307; 81001; 82803; 83036; 83735; 84100; 85025; 87077; 87088; 87186; 90471; 90715; 93005; 93010; 94640; 94760; 94762; 96361; 96365; 96375; 97116; 97162; 97164; 97165; 97530; 97535; 99285-25; A9270; A9270-GY; G0378; G0480; J0696; J1171; J1650; J1815; J1885; J2060; J2270; J2560; J3411; J7030; J7121

== ENCOUNTER 2024-09-26 13:37 | Emergency (ER) | payer MEDICARE, OTHER ==
[~2024-09-26] VITALS: Ht 170.2 cm; Wt 60.6 kg
[~2024-09-26 13:37] MED LIST changes: +ALBUTEROL2.5 MG/3 M INH; +BUPRENORPHINE HC2 MG SL; +IPRAT-ALBUT 0.5-3 ML INH; +IPRATROPIU0.2 MG/1 M INH; +LIDOCAINE PAIN1 EACH TD; +VENTOLIN HFA18 GM INH; +VITAMIN B-1100 MG PO
--- OUTSIDE RECORDS SUMMARY | 2024-09-26 13:39 | XMS ---
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 ED/UCC VISIT TRACKING (12 MO.) 09/26/2024 13:37 JASMIN Ledezma [place] TYPE: Emergency COMPLAINT: - SHORTNESS OF BREATHING 09/10/2024 20:27 JASMIN Ledezma [place] TYPE: Emergency COMPLAINT: - SHORTNESS OF BREATH 09/08/2024 20:27 JASMIN Ledezma [place] TYPE: Emergency COMPLAINT: - SHOULDER PAIN DIAGNOSES: - Allergy status to narcotic agent - Allergy status to other drugs, medicaments and biological substances - Cervicalgia - Chronic obstructive pulmonary disease, unspecified - Essential (primary) hypertension - Fall from bed, initial encounter - Nondisplaced fracture of acromial process, right shoulder, initial encounter for closed fracture - Other long term care administrator (current) drug therapy - Pain in right shoulder - Personal history of nicotine dependence 10/05/2023 09:34 JASMIN Ledezma [place] TYPE: Emergency COMPLAINT: - ABD PAIN, SOB DIAGNOSES: - Emphysema, unspecified - Encounter for screening for COVID-19 - Essential (primary) hypertension - Lower abdominal pain, unspecified - Other senior living (current) drug therapy - Personal history of nicotine dependence - Pneumonia, unspecified organism - Shortness of breath INPATIENT VISIT TRACKING (12 MO.) 09/11/2024 10:[address] [facility] [place] TYPE: Medical Surgical COMPLAINT: - UTI/RIB FRACTURE/ FALLS DIAGNOSES: - Adverse effect of cephalosporins and other beta-lactam antibiotics, initial encounter - Alcohol dependence with intoxication, unspecified - Alcohol dependence with withdrawal, unspecified - Allergy status to narcotic agent - Allergy status to other drugs, medicaments and biological substances - Altered mental status, unspecified - Anxiety disorder, unspecified - Bipolar disorder, unspecified - Blood alcohol level of 200-239 mg/100 ml - Chronic obstructive pulmonary disease, unspecified - Dependence on supplemental oxygen - Essential (primary) hypertension - Fracture of one rib, right side, initial encounter for closed fracture - Hypoglycemia, unspecified - Hypomagnesemia - Other eosinophilia - Personal history of nicotine dependence - Personal history of other infectious and parasitic diseases - Rheumatoid arthritis, unspecified - Spondylosis without myelopathy or radiculopathy, lumbar region - Unspecified Escherichia coli [E. coli] as the cause of diseases classified elsewhere - Unspecified fall, initial encounter - Urinary tract infection, site not specified [id number]
[2024-09-26] MEDS ORDERED: methylPREDNISolone SOD SUCC 125 MG/2 ML VIAL IV ONE (13:45)
[2024-09-26] MEDS ORDERED: ALBUTEROL/IPRATROPIUM 3 ML NEB INH ONE (13:45)
[2024-09-26 13:59] LABS: PH, VENOUS 7.387 (7.31-7.41)
[2024-09-26 14:03] LABS: BASOPHILS 1.1 % (0-2); EOSINOPHILS 3.3 % (0-6); HEMATOCRIT 39.8 % (35.0-50.0); HEMOGLOBIN 13.3 g/dL (12.0-18.0); LYMPHOCYTES 32.6 % (24-44); MCH 30.2 (27-36); MCHC 33.5 g/dl (30-36); MCV 90.1 fl (81-99); MONOCYTES 4.6 % (0-12); NEUTROPHILS 58.4 % (39-80); PLATELET COUNT 531 K/uL (140-440); RBC 4.41 M/ul (4.3-5.7); RDW 16.1 (10.5-15.0)
[2024-09-26 14:24] LABS: ALBUMIN 3.8 g/dL (3.4-5.0); ANION GAP 11.1 (7-21); BILIRUBIN, TOTAL 0.4 ng/dL (0.2-1.0); BUN/CREATININE RATIO 18.96 (6.0-28.6); CALCIUM 9.1 mg/dL (8.5-10.1); CREATININE, SERUM 0.58 mg/dL (0.55-1.02); POTASSIUM 4.1 mmol/L (3.5-5.1); PROTEIN, TOTAL 7.6 g/dL (6.4-8.2)
[2024-09-26 14:35] LABS: ACETAMINOPHEN 0 ug/mL (10-30); SALICYLATE 1.6 mg/dL (2.8-20.0); TSH, 3RD GENERATION 1.736 uIU/mL (0.358-3.740)
[2024-09-26 14:45] LABS: BILIRUBIN, URINE NEGATIVE (negative); BLOOD/HGB, URINE NEGATIVE (Negative); KETONE, URINE NEGATIVE (Negative); LEUK ESTERASE, URINE NEGATIVE (negative); NITRITE, URINE NEGATIVE (negative)
[2024-09-26 14:57] LABS: INFLUENZA B NAA NEGATIVE (NEGATIVE); RESPIRATORY SYNCYTIAL VIR NAA NEGATIVE (NEGATIVE)
[2024-09-26 15:00] LABS: AMPHETAMINES, URINE NEGATIVE (NEGATIVE); BARBITURATES, URINE NEGATIVE (NEGATIVE); BENZODIAZEPINE, URINE NEGATIVE (NEGATIVE); BUPRENORPHINE, URINE POSITIVE (NEGATIVE); CANNABINOID, URINE NEGATIVE (NEGATIVE); COCAINE, URINE NEGATIVE (NEGATIVE); ECSTASY, URINE NEGATIVE (NEGATIVE); FENTANYL, URINE NEGATIVE (NEGATIVE); METHADONE, URINE NEGATIVE (NEGATIVE); OPIATES, URINE NEGATIVE (NEGATIVE); OXYCODONE, URINE NEGATIVE (NEGATIVE); PHENCYCLIDINE, URINE NEGATIVE (NEGATIVE)
[2024-09-26] MEDS ORDERED: CHLORDIAZEPOXID25 MG PO (16:25)
[2024-09-26] MEDS ORDERED: CHLORDIAZEPOXIDE 25 MG CAP PO ONE (16:30)
[2024-09-26 16:38] VITALS: BP 112/83
--- NOTE | 2024-09-27 07:57 | EKG ---
[facility] [address] [place] [address] Signed Normal sinus rhythm Normal ECG When compared with ECG of 12-SEP-2024 04:41, No significant change was found Confirmed by Ally Monterroso MD () on 09/27/2024 7:57:15 AM Electronically Signed By: ALLY MONTERROSO MD 09/27/24 0757 PATIENT NAME: YEMI BARRAGAN Electrocardiogram DATE OF : 51 PHYSICIAN: ALLY MONTERROSO MD REPORT #: [id number] REPORT IS CONFIDENTIAL AND NOT TO BE RELEASED WITHOUT AUTHORIZATION
[2024-09-27] MEDS ORDERED: BUPRENORPHINE HC2 MG SL (09:57)
[2024-09-27] MEDS ORDERED: VENTOLIN HFA18 GM INH (09:59)
[2024-09-27] MEDS ORDERED: LIDOCAINE1 EACH TOP (09:59)
[2024-09-27] MEDS ORDERED: VITAMIN B-1100 M1 PO (09:59)
[2024-09-27] MEDS ORDERED: IPRAT-ALBUT 0.5-3 ML INH (10:00)
== END 2024-09-26 17:25 | disposition home or self-care (01) ==
LOC: ED 13:37
PROVIDERS: Emergency Medicine
DX: J44.9 Chronic obstructive pulmonary disease, unspecified (principal); R45.851 Suicidal ideations; F32.9 Major depressive disorder, single episode, unspecified; F41.9 Anxiety disorder, unspecified; I10 Essential (primary) hypertension; M06.9 Rheumatoid arthritis, unspecified; Z87.891 Personal history of nicotine dependence; Z88.8 Allergy status to other drugs, medicaments and biological substances; Z79.899 Other long term (current) drug therapy
CPT/HCPCS: 36415; 51701; 71045; 80053; 80307; 81003; 82803; 84443; 84484; 85025; 87502; 93005; 93010; 94640; 99285-25; G0480; J2919; U0002

== ENCOUNTER 2024-09-26 20:18 | Inpatient (IN) | payer MEDICARE, OTHER ==
[~2024-09-26] VITALS: Ht 170.2 cm; Wt 59.2 kg
[~2024-09-26 20:18] MED LIST changes: +CHLORDIAZEPOXID25 MG PO
--- OUTSIDE RECORDS SUMMARY | 2024-09-26 20:20 | XMS ---
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 No recent Security Events currently on file CRITERIA MET - [facility] - 2 Visits in 30 Days CARE PROVIDERS LEEANNA ODONNELL Physician Assistant Leeanne Dai PHONE: Unknown [facility] Clinic/Center: [facility] Qualified [facility] Current WORKERS CLINIC \F\ Center (FQ) [facility] PHONE: [phone] Care Guidelines exist for the following facilities: [facility] [place] ( [facility] EAshleyDAshley VISIT COUNT (12 MO.) 5 JASMIN Wheeler TOTAL 5 NOTE: Visits indicate total known visits. 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
[2024-09-26] MEDS ORDERED: BUDESONIDE 0.5 MG/2 ML VIAL INH ONE (20:30)
[2024-09-26] MEDS ORDERED: ALBUTEROL/IPRATROPIUM 3 ML NEB INH ONE (20:30)
[2024-09-26] MEDS ORDERED: ALBUTEROL SULFATE 0.5% 2.5 MG/0.5 ML VIAL INH ONE (20:30)
[2024-09-26] MEDS ORDERED: DEXAMETHASONE SOD PHOS 10 MG/ML VIAL IM ONE (20:30)
[2024-09-26] MEDS ORDERED: ondansetron HCL 4 MG/2 ML VIAL IV PRN (22:15)
[2024-09-26] MEDS ORDERED: ACETAMINOPHEN 325 MG TAB PO PRN (22:15)
[2024-09-26] MEDS ORDERED: THIAMINE HCL 100 MG,FOLIC ACID 1 MG,MULTIVITAMINS 10 ML in SODIUM CHLORIDE 0.9% 1,000 ML IV ONE (22:30)
[2024-09-26] MEDS ORDERED: HALOPERIDOL LACTATE 5 MG/ML VIAL IV PRN (22:30)
[2024-09-26] MEDS ORDERED: LORazepam 2 MG/ML VIAL IV/IM PRN (22:30)
[2024-09-26] MEDS ORDERED: ALBUTEROL SULFATE 0.083% 3 ML VIAL INH PRN (22:30)
[2024-09-26 22:43] VITALS: BP 142/82
--- NOTE | 2024-09-26 23:29 | NUR ---
PT ADMITTED TO ROOM 113 VIA STRETCHER. PT ABLE TO SCOOT SELF OVER TO BED. ORIENTED X 4. REPORTS CHRONIC LOW BACK PAIN 05/27. LSC DIM. HRIR. BTA, MENTIONS ABD CRAMPING. STATES LAST BM WAS 2 DAYS AGO. VOIDS WNL. SL LW WNL. LONG ABRASION TO RIGHT ZHU FROM FALL AT HOME TODAY. PT C/O TREMORS TO BILAT HANDS AND NOTED TO BE MODERATELY RESTLESS AND FIDGETING. CIWA SCORE 10-PRN ATIVAN ADMINISTERED PER EMAR. SNACK PROVIDED FOR C/O HUNGER. CALL LIGHT WITHIN REACH, PT CURRENTLY WATCHING TV.
[2024-09-26 23:38] VITALS: BP 142/82
[2024-09-27] VITALS (15 sets, daily range): BP systolic 92–155; BP diastolic 56–94
[2024-09-27] MEDS ORDERED: THIAMINE HCL 200 MG/2 ML VIAL ONE (00:04)
--- NOTE | 2024-09-27 00:06 | NUR ---
SLEEPING SOUNDLY. APPEARS COMFORTABLE.
--- NOTE | 2024-09-27 00:30 | NUR ---
PT AWAKE, REQUESTING FOOD. SNACK GIVEN, ENSURE SHAKE GIVEN WELL. IV BANANA BAG STARTED PER EMAR. BED ALARM ON FOR SAFETY.
[2024-09-27] MEDS ORDERED: LORazepam 2 MG/ML VIAL IV SCH (02:00)
--- NOTE | 2024-09-27 02:09 | NUR ---
PT ASSISTED TO BSC, REQUIRED CUEING TO SLOW DOWN AND FOR SAFETY. VOIDS WNL, SMALL HARD BM (+). ATIVAN TAPER ADMINISTERED PER EMAR, PT STILL W/ VISIBLE TREMORS AND ANXIETY. BED ALARM FOR SAFETY.
--- NOTE | 2024-09-27 03:49 | NUR ---
PT SLEEPING SOUNDLY. O2 2L N/C IN PLACE. O2 SAT SPOT CHECK 92%.
--- NOTE | 2024-09-27 04:42 | NUR ---
PT AWAKE, IVF INFUSION COMPLETE. PT GIVEN OJ PER REQUEST. CURRENTLY WATCHING TV.
--- NOTE | 2024-09-27 05:30 | NUR ---
LAB IN TO DRAW BLOOD. VSS. PT DROWSY. O2 2L IN PLACE. LS DIM T/O. BED ALARM IN PLACE FOR SAFETY. CALL LIGHT WITHIN REACH.
[2024-09-27 05:32] LABS: BASOPHILS 0.4 % (0-2); HEMATOCRIT 33.8 % (35.0-50.0); LYMPHOCYTES 5.6 % (24-44); MCH 29.6 (27-36); MCHC 32.6 g/dl (30-36); MCV 90.7 fl (81-99); MONOCYTES 1.9 % (0-12); NEUTROPHILS 92.1 % (39-80); PLATELET COUNT 416 K/uL (140-440); RBC 3.72 M/ul (4.3-5.7); RDW 16.1 (10.5-15.0)
[2024-09-27 05:46] LABS: ALBUMIN 3.1 g/dL (3.4-5.0); ALBUMIN/GLOBULIN RATIO 0.97 (1.1-2.4); ANION GAP 13.4 (7-21); BILIRUBIN, TOTAL 0.2 ng/dL (0.2-1.0); BUN/CREATININE RATIO 17.2 (6.0-28.6); CALCIUM 8.7 mg/dL (8.5-10.1); CREATININE, SERUM 0.93 mg/dL (0.55-1.02); MAGNESIUM 1.7 mg/dL (1.8-2.4); POTASSIUM 3.4 mmol/L (3.5-5.1); PROTEIN, TOTAL 6.3 g/dL (6.4-8.2)
[2024-09-27] MEDS ORDERED: methylPREDNISolone SOD SUCC 125 MG/2 ML VIAL IV SCH (06:00)
--- NOTE | 2024-09-27 07:46 | NUR ---
report receied from night rn - pt back to bed from bsc, restless and reporting anxiety. ciwa score 10 on my assessment, 1mg prn ativan administered. iv site patent, wnl. assessment complete. bed alarm on, side rails x3 up, belongings and call light in reach.
[2024-09-27] MEDS ORDERED: ALBUTEROL/IPRATROPIUM 3 ML NEB INH SCH ×2 (08:00→14:00)
[2024-09-27] MEDS ORDERED: THIAMINE HCL 100 MG TAB PO SCH ×2 (08:00→09:30)
[2024-09-27] MEDS ORDERED: BUDESONIDE 0.5 MG/2 ML VIAL INH SCH (08:00)
[2024-09-27] MEDS ORDERED: ondansetron HCL 4 MG/2 ML VIAL IV PRN (08:30)
[2024-09-27] MEDS ORDERED: DEXTROSE 5% 1,000 ML IV PRN (08:30)
[2024-09-27] MEDS ORDERED: DEXTROSE 50% 50 ML SYR IV PRN ×2 (08:30)
[2024-09-27] MEDS ORDERED: PROCHLORPERAZINE EDISYLATE 10 MG/2 ML VIAL IV PRN (08:30)
[2024-09-27] MEDS ORDERED: GLUCAGON,HUMAN RECOMBINANT 1 MG/ML VIAL SUB-Q PRN (08:30)
[2024-09-27] MEDS ORDERED: IBLOOD GLUCOSE TEST STRIP 1 EA TEST XX PRN (08:30)
[2024-09-27] MEDS ORDERED: ACETAMINOPHEN 325 MG TAB PO PRN (08:30)
[2024-09-27] MEDS ORDERED: ENOXAPARIN SODIUM 40 MG/0.4 ML SYR SUB-Q SCH (09:00)
[2024-09-27] MEDS ORDERED: POTASSIUM CHLORIDE 10 MEQ TABCR PO ONE (09:00)
[2024-09-27] MEDS ORDERED: AZITHROMYCIN 250 MG TAB PO SCH ×2 (09:00→09:23)
[2024-09-27] MEDS ORDERED: MAGNESIUM CHLORIDE 64 MG TABCR PO ONE (09:00)
[2024-09-27] MEDS ORDERED: buprenorphine HCL 8 MG TAB.SUBL SL SCH ×2 (09:29→09:39)
[2024-09-27] MEDS ORDERED: POLYETHYLENE GLYCOL 3350 1 PACKET PO SCH (09:36)
[2024-09-27] MEDS ORDERED: SENNOSIDES/DOCUSATE 1 EA TAB PO SCH (09:36)
[2024-09-27] MEDS ORDERED: buprenorphine HCL 2 MG TAB.SUBL SL SCH (09:40)
[2024-09-27] MEDS ORDERED: BUPRENORPHINE HC8 MG SL (09:56)
[2024-09-27] MEDS ORDERED: BUPRENORPHINE HC2 MG SL (09:57)
[2024-09-27] MEDS ORDERED: MIRTAZAPINE45 MG PO (09:57)
[2024-09-27] MEDS ORDERED: LIDOCAINE1 EACH TOP (09:59)
[2024-09-27] MEDS ORDERED: VITAMIN B-1100 M1 PO (09:59)
[2024-09-27] MEDS ORDERED: VENTOLIN HFA18 GM INH (09:59)
[2024-09-27] MEDS ORDERED: IPRAT-ALBUT 0.5-3 ML INH (10:00)
--- NOTE | 2024-09-27 10:01 | NUR ---
PATIENT GIVEN SCHEDULED MORNING BUPRINORPHINE.
--- NOTE | 2024-09-27 10:02 | NUR ---
medications reconciled using pharmacy records
--- NOTE | 2024-09-27 10:12 | NUR ---
UR CLINICAL REVIEW: 2MN SAIMA- MEETS OBS FOR HYPOXIC RESPIRATORY FAILURE MEDICARE INPT 09/26/2024 @ 2214 ORDER MATCHES REG NO AUTH REQUIRED PER MEDICARE RULES DC PLAN PENDING.
--- NOTE | 2024-09-27 11:00 | NUR ---
Spoke with Yulia. CM assessment completed. Pt now feels she would need placement to a SNF. She c/o falls. Pt's memory is very poor. We discussed CM picked up her meds on her last discharge. Her nebulizer meds were in these sacks. She did not have her purse, so the hospital paid her copays. Pt does not have any memory of this and told the ER she did not get her meds. Pt does not remember any of her dc info. She does remember he apartment was left open during her last admission. Pt has a cane and a walker. She uses taxi tickets for transport and does go to [employer] [employer]. She cont. to drink alcohol but does not remember how much she is drinking. She states he son lives in the [facility], he lives in [place], [place]. 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
[2024-09-27] MEDS ORDERED: IBLOOD GLUCOSE TEST STRIP 1 EA TEST VI SCH (12:00)
[2024-09-27] MEDS ORDERED: INSULIN LISPRO 100 UNIT/ML ML SUB-Q SCH (12:00)
[2024-09-27] MEDS ORDERED: PHARMACY RENAL DOSE ADJUSTMENT 1 DOSE MISC PO SCH (12:00)
--- NOTE | 2024-09-27 12:17 | NUR ---
H&P, PROG NOTES, PT/OT EVALS, FACESHEET FAXED TO [facility] TO SNF REFERRAL.
[2024-09-27] MEDS ORDERED: PHENOBARBITAL SOD 130 MG/ML VIAL IV ONE ×2 (12:45→17:45)
--- NOTE | 2024-09-27 12:46 | NUR ---
CALL PLACED TO MD TO INFORM OF INCREASING CIWA SCORE DESPITE FREQUENT ATIVAN IV PUSHES, MOST RECENTLY 18. 1MG ATIVAN ADMINISTERED UNDER TAPER DOSE, PRN DOSE PREVIOUSLY DC'D BEFORE REVIEWING. ONE TIME DOSE OF PHENOBARBITAL ORDERED, ENTERED. CANE BURNER UPDATED TO REVIEW TX TO CCU.
--- NOTE | 2024-09-27 12:50 | NUR ---
Called [facility], Aging and DisabilityJolanta. Updated Yulia has returned. She states she has been attempting to call her since last dc from the hospital. Her son also called [facility]. No one has been able to contact her. I will call from the pts room phone so she can complete the initial assessment. She askes I call at 2 pm.
--- NOTE | 2024-09-27 13:19 | NUR ---
PT TRANSFERED TO ROOM 128 VIA BED WITH THIS RN AND CLINICAL SAFETY MANAGER PER MD VERBAL ORDER TO TX. PT RESTLESS IN BED, DISORIENTED TO TIME/DATE, PREFORM SIMPLE ADDITION. VS STABLE, CONNECTED TO CONTINUOUS MONITOR. THIS RN 1:1 CARE AT THIS TIME.
[2024-09-27] MEDS ORDERED: LORazepam 1 MG TAB PO PRN (13:45)
[2024-09-27] MEDS ORDERED: LORazepam 2 MG/ML VIAL IV/IM PRN (13:45)
--- NOTE | 2024-09-27 14:03 | NUR ---
In and spoke with Yulia. She is eating lunch, but having difficulty. Updated I will call [facility] from her rm phone so they can evaluate her for LT medicaid. Pt agrees. I let her know we sent her chart to [facility]. She then states her mother was held prisoner there. I asked her again as this is where she requested to go this am. Pt does not answer if she is declining [facility]. I attempted to call Jolanta at [facility] and was not able to reach. Left a message with pts room number in CCU as she has been moved from the floor to CCU.
--- NOTE | 2024-09-27 14:26 | NUR ---
Received a call from Jenna at [facility]. She called Yulia and states she is unable to understand anything the pts says. Updated pt returned to drinking on discharge and is most like going through DTs.
--- NOTE | 2024-09-27 14:33 | NUR ---
Patient CIWA 20 at this time d/t patient endorsing itching "like bugs", headache, nausea, and notably auditory hallucinations prompting her to "commit suicide", 1mg ativan per order administered IV
--- NOTE | 2024-09-27 15:02 | NUR ---
PT RESTING IN BED CALM AT THIS TIME, EYES CLOSED, RR EVEN AND UNLABORED. NC AT 2L IN PLACE. HR DECREASED TO 80'S FROM 110'S. THIS RN AT BEDSIDE 1:1 AT THIS TIME.
--- NOTE | 2024-09-27 16:40 | NUR ---
PT IMPULSIVE AND CRAWLING OUT OF BED OUT OF DEEP SLEEP. NEEDS TO VOID. BSC USED WITH 2 PERSON MAX ASSIST, UNABLE TO FOLLOW DIRECTIONS OR ASSIST IN CARES. BACK TO BED, CIWA DOCUMENTED AND PRN ATIVAN ADMINISTERED. CIWA >20 LAST TWO ASSESSMENTS DESPITE MEDICATION ADMINISTRATION. VS STABLE.
--- NOTE | 2024-09-27 17:22 | NUR ---
CIWA SCORE 24 - PT AGAIN WAKES FROM COMPLETE REST TO IMPULSIVE ESCAPE FROM BED. PT GRABBING AT STAFF AND EXTREMETIES NOT COORDINATED. CALLED AND UPDATED ON CIWA SCORE AND CONCERN FOR INCREASING WITHDRAWL SYMPTOMS. SEE EMAR FOR ORDERS RECEIVED.
[2024-09-27] MEDS ORDERED: THIAMINE HCL 100 MG,FOLIC ACID 1 MG,MULTIVITAMINS 10 ML in SODIUM CHLORIDE 0.9% 1,000 ML IV ONE (17:45)
[2024-09-27] MEDS ORDERED: LACTATED RINGER'S 1,000 ML IV SCH (17:45)
--- NOTE | 2024-09-27 19:05 | NUR ---
REPORT RECEIVED FROM BONNIE ABDALLA. pt RESTING IN THE BED. RR EVEN AND UNLABORED. NO NEEDS AT THIS TIME. CALL LIGHT WITHIN REACH.
[2024-09-27] MEDS ORDERED: BUDESONIDE 0.5 MG/2 ML VIAL ONE (19:51)
[2024-09-27 20:15] LABS: BILIRUBIN, URINE NEGATIVE (negative); BLOOD/HGB, URINE NEGATIVE (Negative); KETONE, URINE NEGATIVE (Negative); LEUK ESTERASE, URINE NEGATIVE (negative); NITRITE, URINE NEGATIVE (negative)
--- NOTE | 2024-09-27 20:15 | NUR ---
CWAH NOTED TO BE 14 AT THIS TIME. NO INTERVENTION GIVEN PER PROTOCOL AND DUE TO pt STATING SHE HAD TO USE THE BSC. THIS RN ASSISSTED pt TO BSC WITH 2PA. 2PA BACK TO THE BED. pt NEEDED VERBAL QUEING TO GET BACK TO THE BED. ASSESSMENT DONE. CALL LIGHT WITHIN REACH.
--- NOTE | 2024-09-27 20:45 | NUR ---
CWAH WITH A RESULT OF 0 DUE TO pt RESTING WITH EYES CLOSED. RR EVEN AND UNLABORED. CALL LIGHT WITHIN REACH.
--- NOTE | 2024-09-27 21:43 | NUR ---
IN RM TO DO BG CHECK WITH A RESULTS 109. pt STARTED TO BECOME RESTLESS STATING SHE WAS COLD. CARLOS RN BROUGHT IN WARM BLANKETS AND pt STATED SHE HAD TO PEE. THIS RN AND 2ND RN CARLOS HELPED pt WITH 2PA TO THE BSC. pt URINATED 525ML. TELE LEAD REPLACED ON pt. pt BACK TO BED AND RESTING AT THIS TIME. CALL LIGHT WITHIN REACH.
--- NOTE | 2024-09-27 23:21 | NUR ---
pt SITTING UP IN THE BED. THIS RN AND 2ND RN IN THE TO ASSISST pt. pt STATES SHE HAS TO PEE. 2PA TO BSC. pt BACK TO BED. BED ALARM BACK ON. NO OTHER NEEDS AT THIS TIME. CALL LIGHT WITHIN REACH.
[2024-09-28] VITALS (21 sets, daily range): BP systolic 97–136; BP diastolic 59–97
--- NOTE | 2024-09-28 01:30 | NUR ---
pt STARTED TO GET RESTLESS. pt STATED SHE HAD TO USE THE BSC. pt PEED 400ML. SNACK OFFERED. WATER OFFERED AND GIVEN. 2PA TO THE BSC. pt BACK TO THE BED. NO OTHER NEEDS AT THIS TIME. CALL LIGHT WITHIN REACH.
--- NOTE | 2024-09-28 04:42 | NUR ---
pt STARTING TO GET RESTLESS. THIS RN IN THE RM TO ASSISST pt TO THE BSC. THIS RN AND 2ND RN CARLOS ASSISSTED pt ONTO THE STANDING SCALE TO GET A DAILY WEIGHT. BED ALARM ON. pt BACK TO BED. VITAL SIGNS DONE. pt BACK TO BED. pt EATING A SNACK AND PROVIDED WITH A DRINK. CWAH'S NEGATIVE FOR THIS MORNING. NO OTHER NEEDS AT THIS TIME. CALL LIGHT BRUCE REACH. PUMP CLEARED.
--- NOTE | 2024-09-28 05:38 | NUR ---
LAB IN ROOM TO DRAW PATIENTS BLOOD. PATIENT COULD BE HEAR HOLLERING AT LAB TO "GET OUT". THIS RN INTO PATIENTS ROOM. THIS RN ATTEMPTED TO REDIRECT AND ORIENT PATIENT. PATIENT CONTINUES TO BE AGITATED. PATIENTS CIWA NOTED TO BE 12 PRN MEDICATION GIVEN PER ORDER. PATIENT ABLE TO RELAX AND ALLOW LAB TO DRAW BLOOD. THIS RN REORIENTED PATIENT AND REASSURED PATIENT. PATIENT THEN PROVIDED SNACK. NO FURTHER NEEDS NOTED. PATIENT IS RESTING IN BED EATING A SNACK. NO FURTHER NEEDS NOTED. CALL LIGHT IN REACH. BED ALARM ON FOR SAFETY. IV INFUSING PER ORDER.
[2024-09-28 05:44] LABS: BASOPHILS 0.5 % (0-2); HEMATOCRIT 39.5 % (35.0-50.0); LYMPHOCYTES 15.1 % (24-44); MCH 29.5 (27-36); MCV 89.4 fl (81-99); NEUTROPHILS 80.4 % (39-80); PLATELET COUNT 434 K/uL (140-440); RBC 4.42 M/ul (4.3-5.7); RDW 16.5 (10.5-15.0)
--- NOTE | 2024-09-28 05:48 | NUR ---
pt ATE BOWL OF CEREAL. pt NOW RESTING IN THE BED. BED ALARM ON. pt DENIES ANY OTHER NEEDS AT THIS TIME. CALL LIGHT WITHIN REACH.
[2024-09-28 06:00] LABS: ALBUMIN 3.4 g/dL (3.4-5.0); ALBUMIN/GLOBULIN RATIO 0.97 (1.1-2.4); ANION GAP 12.2 (7-21); BILIRUBIN, TOTAL 0.5 ng/dL (0.2-1.0); BUN/CREATININE RATIO 15.71 (6.0-28.6); CALCIUM 9.3 mg/dL (8.5-10.1); CREATININE, SERUM 0.7 mg/dL (0.55-1.02); POTASSIUM 4.2 mmol/L (3.5-5.1); PROTEIN, TOTAL 6.9 g/dL (6.4-8.2)
--- NOTE | 2024-09-28 07:01 | NUR ---
pt GOT RESTLESS. THIS RN AND 2ND RN NICKIE IN THE TO HELP pt TO THE BSC. pt DENIES ANY OTHER NEEDS AT THIS TIME. CALL LIGHT WITHIN REACH. BED ALARM ON.
[2024-09-28] MEDS ORDERED: THIAMINE HCL 100 MG TAB PO SCH (08:00)
--- NOTE | 2024-09-28 08:55 | NUR ---
in room with rn and pt - pt talkative and confused. knows name and she is in hospital but does not know what one. hob up with 1:1 staff for meal. bed alarm on.
[2024-09-28] MEDS ORDERED: predniSONE 20 MG TAB PO SCH (09:00)
[2024-09-28] MEDS ORDERED: AZITHROMYCIN 250 MG TAB PO SCH (09:00)
--- NOTE | 2024-09-28 09:18 | NUR ---
PATIENT IN BED AT THIS TIME. POLICY DIRECTOR AND RN ASSISTED PATIENT TO BEDSIDE COMMODE @ 0800. POLICY DIRECTOR AND RN STUDENT THEN ASSISTED PATIENT BACK TO BED FROM BEDSIDE COMMODE. PATIENT WATNED HER PJ PANTS BACK ON, POLICY DIRECTOR ASSISTED PATIENT WITH PANTS AND PROVIDED PATIENT WITH WARM BLANKET. CALL LIGHT WITHIN REACH, NO FURTHER NEEDS AT THIS TIME.
--- NOTE | 2024-09-28 09:18 | NUR ---
UR CLINICAL REVIEW: 2MN SAIMA- MEETS INPT FOR COPD EXACERBATION MEDICARE FROM OBS TO INPT 09/28/2024 @ 0905 ORDER MATCHES REG NO AUTH REQUIRED PER MEDICARE RULES DC PLAN PENDING.
--- NOTE | 2024-09-28 09:46 | NUR ---
pt iv left arm leaking and no flush - dc intact. attempt x1 left arm with out success. charge master coordinator and brine supervisor attempting. pt tollerating well.
--- NOTE | 2024-09-28 11:00 | NUR ---
Spoke with Yulia. She is more awake and has better congnition today. Her memory remains pour. She does not want to go to [facility]. She is willing to go anywhere else. Let her know I have faxed her chart to [facility] in [place], [facility], and [facility]. She states she was able to speak with [facility] and was able to answer their questions. She denies other needs.
--- NOTE | 2024-09-28 11:03 | NUR ---
PT NOT AVAILABLE FOR VISIT. PROVIDED PRAYER.
--- NOTE | 2024-09-28 11:05 | NUR ---
pt in room with PT - becomes very agitated and restless, yelling out at noise from iv pump. rn sl iv for staff to work with her.
--- NOTE | 2024-09-28 11:22 | NUR ---
pt back in bed, calm resting with bed alarm on and call light in reach.
--- NOTE | 2024-09-28 12:31 | NUR ---
pt hob up in bed for lunch - pt agitated and restless. po ativan given. health program director in for bed bath, and desean care. bed alarm on and call light in reach.
--- NOTE | 2024-09-28 13:01 | NUR ---
PATIENT IN BED AT THIS TIME. ALTERATION MANAGER AND LIANNE MANNING ASSISTED PATIENT WITH BED BATH AND A SHOWER CAP. ALTERATION MANAGER PROVIDED PATIENT WITH WARM BLANKET. CALL LIGHT WITHIN REACH, BED ALARM ACTIVATED, NO FURTHER NEEDS AT THIS TIME.
--- NOTE | 2024-09-28 13:39 | NUR ---
pt anxious, getting out of bed, assisted 2 staff help to bsc to void, pt unsteady on feet and implulsive. returned to bed, alarm on and call light in reach.
--- NOTE | 2024-09-28 14:00 | NUR ---
Received a call from Lanny at [facility]. They are reviewing pts chart and will let us know tomorrow. She asked if pt qualifies for LT medicaid and I let her know I contacted Jolanta Juarez yesterday. Pt states she answer the financial questions today. I will fu with Jolanta later.
--- NOTE | 2024-09-28 14:30 | NUR ---
Called and spoke with Jolanta at [facility]. She states she has not spoken with Yulia today. She will call her and complete the financial eval.
--- NOTE | 2024-09-28 15:30 | NUR ---
Received a voice message from Jolanta at [facility]. Financial eval has been completed. She also states she received a call from [facility] checking on her medicaid status. I have a text into Charito at [facility]. I have not received a reply at this time.
--- NOTE | 2024-09-28 18:41 | NUR ---
PATIENT IN BED AT THIS TIME. SOLAR MANAGER ASSISTED PATIENT TO BEDSIDE COMMODE AND THEN BACK TO BED. CALL LIGHT WITHIN REACH, BED ALARM ON, NO FURTHER NEEDS AT THIS TIME.
--- NOTE | 2024-09-28 18:59 | NUR ---
pt calm resting in bed with exit alarm on and call light in reach. watching tv - states she is very tired.
[2024-09-28] MEDS ORDERED: BUDESONIDE 0.5 MG/2 ML VIAL ONE (19:24)
--- NOTE | 2024-09-28 19:30 | NUR ---
SHIFT REPORT RECEIVED. PATIENT RESTING IN BED. EYES CLOSED. VS STABLE. TOLERATING 3L NC. BED ALARM ACTIVE. CALL LIGHT IN REACH.
--- NOTE | 2024-09-28 20:15 | NUR ---
PATIENT UP TO EDGE OF BED. PATIENT REPORTS FEELING SOB AND HAVING TO VOID. ASSISTED PATIENT UP TO BSC. PATIENT VOIDED. GOWN CHANGED AT THIS TIME. PATIENT ABLE TO FOLLOW SOME COMMANDS. RETURNS TO BED. RT IN FOR NEB TREATMENT. PATIENT TOLERATING 3L NC. RR 12-14. PATIENT REQUEST PRN PAIN MEDS AND SLEEP AID. DISCUSSED WITH .
[2024-09-28] MEDS ORDERED: MIRTAZAPINE 30 MG TAB PO SCH (20:27)
--- NOTE | 2024-09-28 21:15 | NUR ---
PATIENT PROVIDED SCHEDULED MEDS AND PRN MEDS FOR PAIN AND CIWA >8. PATIENT IS ORIENTED TO SELF, BUT ANXIOUS AND FORGETFUL. FOLLOWS COMMANDS. LUNG SOUNDS ARE DIM THROUGHOUT. DENIES FEELING SOB AT THIS TIME. TOLERATING 2L NC. DENIED GI UPSET. PAIN IN ELLEN HIPS, PRN TYLENOL. PATIENT SL; IV SITE WNL X2. NO OTHER NEEDS AT THIS TIME. CALL LIGHT IN REACH. BED ALARM ACTIVE.
--- NOTE | 2024-09-28 23:00 | NUR ---
PATIENT RESTING IN BED, EYES CLOSED. VS STABLE. BED ALARM ACTIVE. ALLOWED PATIENT TO REST.
[2024-09-29] VITALS (12 sets, daily range): BP systolic 96–145; BP diastolic 54–79
[2024-09-29] MEDS ORDERED: ALBUTEROL SULFATE 0.083% 3 ML VIAL ONE (00:28)
[2024-09-29] MEDS ORDERED: ALBUTEROL SULFATE 0.083% 3 ML VIAL INH PRN (00:30)
--- NOTE | 2024-09-29 00:37 | NUR ---
GAVE YEMI A PRN ALBUTEROL NEBULIZED TREATMENT PER HER REQUEST. SHE REMAINS ON A 2L NC W/HUMIDIFICATION.
--- NOTE | 2024-09-29 00:40 | NUR ---
PATIENT UP TO BSC. PATIENT IS SLIGHTLY UNSTEADY BUT ABLE TO MOVE WITH MINIMAL ASSIST. PATIENT MORE ORIENTED, FOLLOWING COMMANDS. IS FORGETFUL ON USING HER CALL LIGHT. PATIENT VOIDED AND RETUNRED TO BED. PROVIDED FRESH ICE WATER. PATIENT REQUEST PRN NEB TREATMENT. RT CALLED.
--- NOTE | 2024-09-29 03:00 | NUR ---
PATIENT UP TO BSC. PATIENT DID NOT USE CALL LIGHT. BED ALARM ALERTED STAFF. PATIENT VOIDED AND WAS ASSISTED BACK TO BED. PATIENT FOLLOWS COMMANDS BUT IS DROWSY AND SOMEWHAT UNCORRDINATED MOVEMENTS. PATIENT PROVIDED WARM BLANKET. CALL LIGHT IN REACH. BED ALARM ACTIVE.
--- NOTE | 2024-09-29 05:15 | NUR ---
PATIENT UP TO BSC TO VOID. PATIENT DOES WELL. CONTINUES TO BE SOMEWHAT UNCORRDINATED BUT TRANSFERS WITH MINIMAL ASSIST. PATIENT VOIDED AND RETURNED TO BED. REPORTS FEELING WELL. IS ORIENTED TO SELF AND SURROUNDINGS. CALL LIGHT IN REACH. BED ALARM ACTIVE.
[2024-09-29 05:38] LABS: BASOPHILS 0.4 % (0-2); EOSINOPHILS 0.6 % (0-6); HEMATOCRIT 34.1 % (35.0-50.0); HEMOGLOBIN 11.4 g/dL (12.0-18.0); LYMPHOCYTES 30.4 % (24-44); MCHC 33.6 g/dl (30-36); MCV 89.3 fl (81-99); MONOCYTES 5.3 % (0-12); NEUTROPHILS 63.3 % (39-80); PLATELET COUNT 402 K/uL (140-440); RBC 3.82 M/ul (4.3-5.7); RDW 16.3 (10.5-15.0)
[2024-09-29 05:56] LABS: ALBUMIN 3.1 g/dL (3.4-5.0); ANION GAP 8.9 (7-21); BILIRUBIN, TOTAL 0.3 ng/dL (0.2-1.0); BUN/CREATININE RATIO 16.12 (6.0-28.6); CALCIUM 8.8 mg/dL (8.5-10.1); CREATININE, SERUM 0.62 mg/dL (0.55-1.02); POTASSIUM 3.9 mmol/L (3.5-5.1); PROTEIN, TOTAL 6.2 g/dL (6.4-8.2)
--- NOTE | 2024-09-29 07:55 | NUR ---
CHANELLE FROM [facility] STATES THEY ARE UNABLE TO ACCEPT THE PATIENT FOR SNF AT THIS TIME.
--- NOTE | 2024-09-29 08:05 | NUR ---
rn in room with pt, oxygen 93 % 1 litre - pt resting in bed with alarm on and call light in reach. dr rayo here - pt improving and plan to trsf to ms later today. goal to mobilize pt more today and continue to strengthen and monitor o2 and resp needs.
--- NOTE | 2024-09-29 08:37 | NUR ---
pt resting in bed, rt in for neb tx - no changes
--- NOTE | 2024-09-29 10:26 | NUR ---
UPDATED PATIENT NO ANSWER ON SNF FACILITY AT THIS TIME. WILL UPDATE HER WHEN RESPONSES ARE GIVEN. 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 VERBALIZES UNDERSTANDING. NO OTHER QUESTIONS AT THIS TIME.
--- NOTE | 2024-09-29 11:24 | NUR ---
PT NOT AVAILABLE FOR VISIT. PROVIDED PRENZOER.
--- NOTE | 2024-09-29 11:50 | NUR ---
PT ARRIVES IN HOSPITAL BED FROM CCU. CPOX APPLIED, PT AT 1L NC, SPO2 SUSTAINS 90-91%. IV IN L FOREARM FLUSHES WNL. LUNCH TRAY PROVIDED. NO NEEDS AT THIS TIME, BED ALARM ON, BED IN LOWEST POSITION, CALL LIGHT IN LAP.
--- NOTE | 2024-09-29 12:28 | NUR ---
CPS CURRENTLY IN WITH PT DISCUSSING PLAN OF CARE.
--- NOTE | 2024-09-29 13:23 | NUR ---
PATIENT IN BED AT THIS TIME. VISUAL ARTS TEACHER AND RN CHARTED VITALS AND I&O'S. CALL LIGHT WITHIN REACH, NO FURTHER NEEDS AT THIS TIME.
--- NOTE | 2024-09-29 13:49 | NUR ---
SPOKE WITH EKTA AT [facility], NO ANSWER YET. STATES DNS HAS NOT YET BEEN ABLE TO REVIEW THE CHART, BUT THEY WILL REVIEW AND CALL WITH ANSWER.
--- NOTE | 2024-09-29 14:23 | NUR ---
ASSESSMENT COMPLETE. PT GIVEN PRN ATIVAN FOR CIWA OF 9. CALL LIGHT IN REACH, BED ALARM ON.
--- NOTE | 2024-09-29 15:30 | NUR ---
PT RESTING IN BED WITH EYES CLOSED, RR EVEN AND UNLABORED, WAKES TO VOICE. PT REPORTS SHE FEELS MORE RELAXED AT THIS TIME. REQUESTS JUICE - PROVIDED. NO OTHER NEEDS, CALL LIGHT IN REACH.
--- NOTE | 2024-09-29 15:39 | NUR ---
RESPIRATORY THERAPY NOTIFED OF PTs SCHEDULED NEBULIZER TREATMENT, RESPIRATORY THERAPY SAGE STATES HE WILL BE OVER SOON TO ASSESS THE PT.
--- NOTE | 2024-09-29 15:55 | NUR ---
PATIENT IN BED AT THIS TIME. AUTOMOTIVE SERVICE CONSULTANT CHARTED HOURLY ROUNDS. CALL LIGHT WITHIN REACH, NO FURTHER NEEDS AT THIS TIME.
--- NOTE | 2024-09-29 18:43 | NUR ---
SUPPOSITORY ADMINISTERED PER ORDERS. HARD STOOL FELT WHEN PLACING. PT EDUCATED TO LAY ON HER L SIDE, VERBALIZES UNDERSTANDING. CALL LIGHT IN REACH, BED IN LOWEST POSITION, BED ALARM ON.
[2024-09-29] MEDS ORDERED: bisacodyL 10 MG SUPP PR ONE (18:45)
--- NOTE | 2024-09-29 19:05 | NUR ---
REPORT RECEIVED FROM CAMELIA ABDALLA. pt RESTING IN THE BED. RR EVEN AND UNLABORED. CALL LIGHT WITHIN REACH. BOARD UPDATED.
--- NOTE | 2024-09-29 21:30 | NUR ---
ASSESSMENT AND VITAL SIGNS DONE. pt UP TO THE BR. SBA. pt SATTING AT 90% ON 1LNC. BG CHECKED WITH A RESULTS OF 118. NO SS INSULIN NEEDED AT THIS TIME. SCHEDULED MEDS ADMINISTERED. pt DENIES ANY OTHER NEEDS AT THIS TIME. CALL LIGHT WITHIN REACH. WATER REFRESHED.
--- NOTE | 2024-09-29 21:33 | NUR ---
TRASH TRUCK DRIVER AND RN OBTAINED VITALS AND I&O. TRASH TRUCK DRIVER TOOK PT BLOOD SUGAR. BLOOD SUGAR IS 118. RN NOTIFED. PT ABLE TO BOOST HERSELF IN BED. PT STATES NO FURTHER NEEDS AT THIS TIME. CALL LIGHT WITHIN REACH AND RN IN ROOM.
[2024-09-30] VITALS (10 sets, daily range): BP systolic 95–132; BP diastolic 55–82
--- NOTE | 2024-09-30 00:28 | NUR ---
pt RESTING IN THE BED WITH EYES CLOSED. RR EVEN AND UNLABORED. CALL LIGHT WITHIN REACH.
--- NOTE | 2024-09-30 02:33 | NUR ---
pt RESTING IN THE BED WITH EYES CLOSED. RR EVEN AND UNLABORED. CALL LIGHT WITHIN REACH.
--- NOTE | 2024-09-30 03:00 | NUR ---
BED ALARM ANSWERED. PT SITTING AT EDGE OF BED STATING SHE NEEDED TO USE BATHROOM. DIRECTOR TELEMETRY SBA TO BATHROOM. PT VOIDED AND ASSISTED BACK TO BED. PT REMINDED TO USE CALL LIGHT WHEN SHE NEEDED TO GET UP. PT STATES NO FURTHER NEEDS AT THIS TIME. CALL LIGHT WITHIN REACH AND BED ALARM ON.
[2024-09-30 05:26] LABS: BASOPHILS 0.6 % (0-2); EOSINOPHILS 1.1 % (0-6); HEMATOCRIT 37.1 % (35.0-50.0); HEMOGLOBIN 12.4 g/dL (12.0-18.0); LYMPHOCYTES 33.7 % (24-44); MCH 29.8 (27-36); MCHC 33.3 g/dl (30-36); MCV 89.4 fl (81-99); NEUTROPHILS 58.6 % (39-80); PLATELET COUNT 408 K/uL (140-440); RBC 4.15 M/ul (4.3-5.7); RDW 16.6 (10.5-15.0)
--- NOTE | 2024-09-30 05:53 | NUR ---
ASSESSMENT AND VITAL SIGNS DONE. pt UP TO THE BR WITH SBA FOR LINE/TUBE MANAGEMENT. pt DENIES ANY OTHER NEEDS AT THIS TIME. CALL LIGHT WITHIN REACH.
[2024-09-30 06:05] LABS: ALBUMIN 2.9 g/dL (3.4-5.0); ALBUMIN/GLOBULIN RATIO 0.94 (1.1-2.4); ANION GAP 11.3 (7-21); BILIRUBIN, TOTAL 0.3 ng/dL (0.2-1.0); BUN/CREATININE RATIO 24.24 (6.0-28.6); CALCIUM 8.7 mg/dL (8.5-10.1); CREATININE, SERUM 0.66 mg/dL (0.55-1.02); POTASSIUM 4.3 mmol/L (3.5-5.1)
--- NOTE | 2024-09-30 07:15 | NUR ---
REPORT RECEIVED FROM LIANNE HAYES. PT RESTING IN BED WITH EYES CLOSED, MOUTH OPEN, RR EVEN AND UNLABORED. NC IN PLACE AT 1L, BEDSIDE CPOX READS 90%. CALL LIGHT IN REACH.
--- NOTE | 2024-09-30 08:35 | NUR ---
MORNING MEDICATIONS ADMINISTERED, SEE MAR. PT IS SITTING UP IN BED WITH TELEVISION ON, BREAKFAST TRAY IN FRONT OF HER. PT REPORTS SHE HAS LOW BACK PAIN RATED 8/10, PRN PAIN MEDICATION ALSO ADMINISTERED AT THIS TIME, SEE MAR. NO OTHER REQUESTS, CALL LIGHT IN REACH, BED IN LOWEST POSITION, BED ALARM ON.
--- NOTE | 2024-09-30 09:31 | NUR ---
ASSESSMENT COMPLETE. PT IS SITTING UP IN BED ALMOST FINISHED WITH BREAKFAST. PT REPORTS HER PAIN IS CURRENTLY A 7/10 IN HER LOWER BACK. HEAT PACK PROVIDED AT THIS TIME. LUNG SOUNDS CLEAR IN RUL AND RLL, DIM IN RONNELL AND CLEAR IN LLL. PT IS CURRENTLY ON 1L VIA NC WITH CPOX AT BEDSIDE READING SPO2 89%. SHE REPORTS NO SOB AND HER BREATHING IS UNLABORED. HEART SOUNDS HEARD WNL, BOWEL TONES ACTIVE IN ALL FOUR QUADRANTS. PT REPORTS NO ABDOMINAL TENDERNESS OR NAUSEA. PULSES 2+ IN ALL EXTREMETIES, PT REPORTS NO NUMBNESS OR TINGLING. ABRASIONS NOTED TO PTs R ZHU AND L KNEE, SHE REPORTS THIS IS FROM A FALL. SHE HAS SCATTERED SCARS ON BILAT ARMS AND HER L FOOT WELL LARGE CALLOUSES ON THE BOTTOMS OF BOTH FEET. ASSISTED PT IN CHANGING HER GOWN AND STRAIGHTENING OF HER LINEN. PT REPORTED THAT HER R ARM IS WET. R IV IS LEAKING PROFUSELY. ATTEMPTED TO TIGHTEN WITH NO SUCCESS. R AC IV REMOVED AT THIS TIME, CATH INTACT. L FOREARM IV FLUSHES WNL. PT RETURNS TO HER BREAKFAST TRAY, NO OTHER REQUESTS AT THIS TIME. BED IN LOWEST POSITION, BED ALARM ON, CALL LIGHT IN REACH.
--- NOTE | 2024-09-30 10:16 | NUR ---
FORWARD AIR CONTROLLER/AIR OFFICER IN ROOM TO ROUND - PT RESTING IN BED, STATES SHE IS SLEEPY, DENIES NEEDS AT THIS TIME. CALL LIGHT IN REACH.
--- NOTE | 2024-09-30 13:25 | NUR ---
PT RESTING IN BED WATCHING TELEVISION, REQESTS A SNACK - PROVIDED. NO OTHER REQUESTS AT THIS TIME, CALL LIGHT IN REACH, BED IN LOWEST POSITION, BED ALARM ON.
--- NOTE | 2024-09-30 14:54 | NUR ---
SECOND ASSESSMENT COMPLETE. PT REPORTS HER LOW BACK AND L HIP PAIN IS AT AN 8/10, PRN PAIN MEDICATION PROVIDED, TWO HEAT PACKS PROVIDED, AND PT AGREES TO TRY REPOSITIONING IN RECLINER. PT RESTING IN RECLINER WITH BLE ELEVATED, WARM BLANKET PROVIDED. STATES SHE FEELS COMFORTABLE. TC IS A 2 AT THIS TIME. CALL LIGHT IN REACH.
--- NOTE | 2024-09-30 16:33 | NUR ---
CALL RETURNED TO PTs SON CHASE. SON IS UPDATED ON PT PLAN OF CARE, STATES HE WILL CALL AGAIN ON WEDNESDAY SO HE MIGHT SPEAK WITH COMPLIANCE AUDITOR. CALL IS TRANSFERRED TO PTs ROOM, PT ASSISTED TO ANSWER PHONE. PT REMAINS SITTING UP IN HER RECLINER, BLE ELEVATED, WATCHING TELEVISION. CHAIR ALARM IS ON, NO OTHER NEEDS AT THIS TIME.
--- NOTE | 2024-09-30 18:19 | NUR ---
PT AMBULATES TO BATHROOM WITH FWW AND SBA. PT PREVIOUSLY UP IN RECLINER, NOW GETS INTO BED AND IS ASSISTED IN GETTING COMFORTABLE. REQUESTS JUICE - RETRIEVED. NO OTHER REQUESTS AT THIS TIME. CALL LIGHT IN REACH, BED IN LOWEST POSITION, BED ALARM ON.
--- NOTE | 2024-09-30 19:58 | NUR ---
Awake, alert and oriented, On O2 1LNC, cpox at bedside, no sob with exertion, lungs clear, dim at bases.turns and repostions self in bed. SL patent. no c/o pain, fresh water and gram crackers given on request
--- NOTE | 2024-09-30 20:23 | NUR ---
up to brp, voided, back to bed, unsteady, 1pa/fww, O2 1LNC, tolerated well, CPOX on at bedside. no SOB with exertion, bed larm in place, fall preautions
[2024-09-30] MEDS ORDERED: MIRTAZAPINE 30 MG TAB PO SCH (21:00)
--- NOTE | 2024-09-30 22:32 | NUR ---
resting, on 1L NC O2, no resp distress. turns and repositions self in bed.
[2024-10-01] VITALS (10 sets, daily range): BP systolic 100–124; BP diastolic 58–71
--- NOTE | 2024-10-01 00:23 | NUR ---
Resting, eyes closed, on 1LNC O2. no resp distress. Bed alarm in place
--- NOTE | 2024-10-01 02:46 | NUR ---
resting, no s/sx distress, bed alrm in place, O2 1LNC
--- NOTE | 2024-10-01 04:19 | NUR ---
aresting, eyes closed, on 1LNC, CPOX at bedside, sats mid 90's%. no distress noted, no s/sx withdrawals. alarms on
[2024-10-01 05:16] LABS: BASOPHILS 0.7 % (0-2); EOSINOPHILS 1.3 % (0-6); HEMATOCRIT 38.5 % (35.0-50.0); HEMOGLOBIN 12.6 g/dL (12.0-18.0); MCH 29.5 (27-36); MCHC 32.9 g/dl (30-36); MCV 89.8 fl (81-99); MONOCYTES 4.9 % (0-12); NEUTROPHILS 57.1 % (39-80); PLATELET COUNT 401 K/uL (140-440); RBC 4.28 M/ul (4.3-5.7); RDW 16.3 (10.5-15.0)
[2024-10-01 05:28] LABS: ANION GAP 10.2 (7-21); BUN/CREATININE RATIO 26.47 (6.0-28.6); CALCIUM 8.7 mg/dL (8.5-10.1); CREATININE, SERUM 0.68 mg/dL (0.55-1.02); PHOSPHORUS, INORGANIC 4.2 mg/dL (2.5-4.9); POTASSIUM 4.2 mmol/L (3.5-5.1)
--- NOTE | 2024-10-01 06:21 | NUR ---
resting, eys closed, O2 1LNC in place, no c/o sob with exertion noted earlier when doing vitals nad when up to brp. no s/sx distress or etoh withdrawal
--- NOTE | 2024-10-01 07:00 | NUR ---
REPORT RECEIVED FROM LIANNE BUSTOS. PT AWAKE AND ALERT IN BED, REQUESTING SNACK AND DRINK - PROVIDED. NO OTHER REQUESTS AT THIS TIME. BED IN LOWEST POSITION, BED ALARM ON, CALL LIGHT IN REACH.
--- NOTE | 2024-10-01 07:52 | NUR ---
MORNING MEDICATIONS ADMINSTERED, ASSESSMENT COMPLETE. PT IS SITTING UP IN WITH HOB ELEVATED. PT REPORTING LOW BACK PAIN AT AN 8/10, ONLY REQUESTING HER SCHEDULED MEDICATIONS FOR PAIN AT THIS TIME. DECLINES HOT PACK FOR NOW. CPOX AT BEDSIDE READS SPO2 OF 99% ON 1L NC, PT TITRATED TO RA AND SUSTAINS SPO2 OF 94%. LUNG SOUNDS CLEAR IN BUL, DIM AND TIGHT IN BLL, REPORTS NO SOB, HAS SCHEDULED 0800 NEB TREATMENT WITH RT DUE SOON. HEART SOUNDS HEARD WNL, PULSES 2+ IN ALL EXTREMETIES, PT REPORTS NO NUMBNESS OR TINGLING, NO EDEMA NOTED. PT CORRECTLY IDENTIFIES THE DATE AND MONTH, ANSWERS "[place] IN [place]?" WHEN ASKED WHERE SHE IS. PT RE-ORIENTED TO PLACE AND EXLAIMS "OH YEAH!" PT UNSURE OF WHY SHE IS HERE, GUESSES THAT SHE MAY HAVE FALLEN AND INJURED HER HIP. PT RE-ORIENTED TO WHY SHE IS IN THE HOSPITAL, STATES THAT SHE REMEMBERS NOW. PT BREAKFAST TRAY ARRIVES AT THIS TIME, PT IS EXCITED TO EAT. PT HAS NO OTHER NEEDS AT THIS TIME, CALL LIGHT IN REACH, BED ALARM ON, BED IN LOWEST POSITION.
--- NOTE | 2024-10-01 08:03 | NUR ---
DISCUSSED OXYGEN TITRATION WITH SAGE FROM RESPIRATORY THERAPY. SAGE REPORTS THAT HE WISHES FOR PT TO REMAIN ON 1L OF O2 THIS IS HER BASELINE OXYGEN USE. PT OXYGEN TITRATED BACK TO 1L, SPO2 READS 98% ON CPOX AT THIS TIME.
--- NOTE | 2024-10-01 08:57 | NUR ---
87% ON RA. PLACED ON 2 LPM PER HOME [facility]IM[facility]. COVERSATION WITH MD AND ORDER CHANGED PER PROTOCOL.
--- NOTE | 2024-10-01 09:54 | NUR ---
PT REPORTS HER PAIN IS "A LOT A BETTER" AND RATES IT A 7/10. SHE HAS A HOT PACK RIGHT AT THIS TIME AND IS IN BED WATCHING A MOVIE. NO OTHER NEEDS NOTED, CALL LIGHT IN REACH.
--- NOTE | 2024-10-01 11:42 | NUR ---
MOO HAMMOND ESCORTS PT TO RESTROOM. PT VOIDS AND HAS BOWEL MOVEMENT. PT AMBULATES TO RECLINER AT THIS TIME, LUNCH TRAY ARRIVES. CALL LIGHT IN REACH, NO OTHER NEEDS AT THIS TIME.
--- NOTE | 2024-10-01 13:18 | NUR ---
PT AMBULATES TO RESTROOM WITH FWW AND VOIDS. FRESH GOWN AND PULL-UP PROVIDED AT THIS TIME. PT DOES HER OWN SPARKLE-CARE. AMBULATES BACK TO BED. WARM BLANKET PROVIDED, PT RESTING IN BED AT THIS TIME. LUNCH TRAY REMOVED. BED ALARM ON, BED IN LOWEST POSITION, CALL LIGHT IN REACH.
--- NOTE | 2024-10-01 14:10 | NUR ---
PATIENT VITALS AND I/O'S COMPLETED AND CHARTED. PT OXYGEN IN PLACE AND HAS NO REQUESTS AT THIS TIME. RN IN ROOM. BED ALARM HEAVY DUTY CUSTODIAN LIGHT WITHIN REACH.
--- NOTE | 2024-10-01 14:11 | NUR ---
SECOND ASSESSMENT COMPLETE. LUNG SOUNDS DIM THROUGHOUT, PT REPORTS NO SOB, CURRENTLY RESTING IN BED AT 2L NC, SPO2 91%. PT REPORTS HER LOW BACK PAIN IS A 7/10 BUT IS REQUESTING NO MEDICATION OR FURTHER INTERVENTIONS AT THIS TIME. CIWA SCORE AT THIS TIME IS A 1. PT CORRECTLY REPORTS THE DAY AND MONTH, SHE IS AWARE SHE IS IN THE HOSPITAL BUT UNSURE WHICH ONE. PT RE-ORIENTED TO PLACE AND VERBALIZES UNDERSTANDING. PT IS OTHERWISE ALERT AND ORIENTED, APPEARS TO BE AT BASELINE. IV FLUSHES WNL WITH 10ML NS. PT HAS NO REQUESTS, CALL LIGHT IN REACH, BED ALARM ON, BED IN LOWEST POSITION.
--- NOTE | 2024-10-01 15:22 | NUR ---
PT REMAINS RESTING IN BED WITH HOB ELEVATED. SHE REQUESTS A SNACK AT THIS TIME - PROVIDED. NO OTHER REQUESTS, CALL LIGHT IN REACH, BED ALARM ON, BED IN LOWEST POSITION.
--- NOTE | 2024-10-01 16:40 | NUR ---
PT OUT TO NURSEs STATION IN WHEELCHAIR, PARTICIPATES IN WORD ASSOCIATION GAME.
--- NOTE | 2024-10-01 19:25 | NUR ---
RECIEVED REPORT FROM DAYSNCFT RN. PATIENT AWAKE IN BED WATCHING TV. PATIENT DENIES NEEDS AT THIS TIME. CALL LIGHT IN REACH. BED ALARM ACTIVE.
--- NOTE | 2024-10-01 19:30 | NUR ---
1PA USING WALKER WITH MINIMAL ASSIST TO THE BATHROOM AND BACK TO BED. PATIENT URINATED UNMEASURED IN LARGE AMOUNT YELLOW COLOR AND BM IN MEDIUM SIZE. PATIENT PROVIDED WITH GAURAV CRACKERS AND APPLE JUICE PER REQUEST AND RN WAS NOTIFIED. BED ALARM ON FOR SAFETY. RT WAS IN THE ROOM.
--- NOTE | 2024-10-01 21:13 | NUR ---
IN ROOM TO ASSESS PATIENT. ASSESSMENT COMPLETED. PATIENT MEDICATIONS ADMINISTERED, SEE E-MAR. PATIENT REPORTING 7/10 LOW BACK PAIN, PRN TYLENOL ADMINISTERED, SEE E-MAR. PATIENT RESTING IN BED WATCHING TV. PATIENT DENIES ADDITIONAL NEEDS AT THIS TIME. CALL LIGHT IN REACH. BED ALARM ACTIVE.
--- NOTE | 2024-10-01 22:19 | NUR ---
WATER CHEMIST GAVE PT A SUGAR FREE SNACK.
--- NOTE | 2024-10-01 23:15 | NUR ---
IN ROOM TO ROUND ON PATIENT. PATIENT AWAKE IN BED WATCHING TV. PATIENT DENIES NEEDS AT THIS TIME. CALL LIGHT IN REACH. BED ALARM ACTIVE.
--- NOTE | 2024-10-01 23:35 | NUR ---
PATIENT CALLED TO USE THE BATHROOM. 1 PA WITH MINIMAL ASSIST USING WALKER. PATIENT VOIDED UNMEASURED. PATIENT IS BACK IN BED. ALARM SET ON FOR SAFETY.
[2024-10-02] VITALS (9 sets, daily range): BP systolic 102–136; BP diastolic 61–73
--- NOTE | 2024-10-02 01:13 | NUR ---
IN ROOM TO ROUND ON PATIENT. PATIENT RESTING IN BED ON RIGHT SIDE WITH EYES CLOSED. RESPIRATIONS EVEN AND UNLABORED. 2L VIA NC IN PLACE. NO NEEDS IDENTIFIED AT THIS TIME. CALL LIGHT IN REACH. BED ALARM ACTIVE.
--- NOTE | 2024-10-02 01:13 | NUR ---
IN ROOM TO ROUND ON PATIENT. PATIENT RESTING IN BED ON BACK WITH EYES CLOSED. PRODUCT SALES REPRESENTATIVE PRESENT IN ROOM. NO NEEDS IDENTIFIED AT THS TIME. CALL LIGHT IN REACH. BED ALARM ACTIVE.
--- NOTE | 2024-10-02 01:35 | NUR ---
MINIMAL ASSIST TO THE BATHROOM AND BACK TO BED. PATIENT STATED I DONT KNOW IF I HAVE INFECTION IT TAKES TIME FOR ME TO PEE. THIS COMPENSATION SUPERVISOR NOTIFIED PRIMARY RN. BED ALARM ON FOR SAFETY.
--- NOTE | 2024-10-02 03:15 | NUR ---
IN ROOM TO ROUND ON PATIENT. PATIENT RESTING IN BED ON RIGHT SIDE WITH EYES CLOSED. RESPIRATIONS EVEN AND UNLABORED. NO NEEDS IDENTIFIED AT THIS TIME. CALL LIGHT IN REACH. BED ALARM ACTIVE.
--- NOTE | 2024-10-02 04:22 | NUR ---
ROUNDED ON pt, pt RESTING ON RIGHT SIDE FACING WINDOW, REMAINS ON 2LNC. RR EVEN AND UNLABORED, RATE APPROX 15-16. BED ALARM ON AND CALL LIGHT IN REACH.
--- NOTE | 2024-10-02 06:00 | NUR ---
IN ROOM TO ROUND ON PATIENT. ASSESSMENT COMPLETED. NEURO CHECK COMPLETED. NO SIGNIFICANT CHANGES FROM PRIOR ASSESSEMENT. PATIENT REQUESTS A SNACK, SUGAR FREE PUDDING PROVIDED. PATIENT DENIES ADDITIONAL NEEDS AT THIS TIME. 2L VIA NC IN PLACE. CALL LIGHT IN PLACE. BED ALARM ACTIVE.
--- NOTE | 2024-10-02 06:31 | NUR ---
PATIENT SLEPT WELL. PATIENT DENIES SHORTNESS OF BREATH. VITALS REMAIN STABLE ON 2L VIA NC. PATIENT HUNGRY/REQUESTING LOTS OF SUGAR FREE SNACKS. PATIENT AMBULATES SBA WITH FWW WITHOUT DIFFICULTY. PAIN CONTROLLED WELL WITH ORAL PAIN MEDICATION. BLOOD SUGARS WNL.
--- NOTE | 2024-10-02 07:38 | NUR ---
REPORT RECEIVED FROM LIANNE ELIAS.
--- NOTE | 2024-10-02 07:53 | NUR ---
REPORT RECIEVED FROM LIANNE ELIAS.
--- NOTE | 2024-10-02 08:24 | NUR ---
Texted Charito at [facility] and called and left a message for Lanny at [facility]. Notified by Charito they will not accept her do to her emotional needs. Waiting for a reply from Lanny.
--- NOTE | 2024-10-02 08:26 | NUR ---
PATIENT UP TO CHAIR FOR BREAKFAST, 1PA FWW. CHAIR ALARM ON. CALL LIGHT IN REACH. NO FURTHER NEEDS AT THIS TIME.
--- NOTE | 2024-10-02 09:24 | NUR ---
PT SITTING UP IN CHAIR EATING BREAKFAST. ADMINISTERED MORNING MEDS. DENIES CONCERNS.
--- NOTE | 2024-10-02 11:06 | NUR ---
PT ASSISTED BACK TO BED FOR MID MORNING NAP. PT REPORTS BEING VERY TIRED.
[2024-10-02] MEDS ORDERED: DICYCLOMINE HCL 10 MG CAP PO PRN (11:30)
--- NOTE | 2024-10-02 12:00 | NUR ---
PT NOT AVAILABLE FOR VISIT. PROVIDED PRAYER.
--- NOTE | 2024-10-02 13:21 | NUR ---
PT SITTING ON EDGE OF BED EATING LUNCH. CALL LIGHT IN REACH. DENIES CONCERNS ATT.
--- NOTE | 2024-10-02 14:00 | NUR ---
Attempted to see pt and then again now. Pt sleeping. Not awakened. Pt was declined by [facility] Carty and . I contacted Lanny at [facility] this morning but have not had a reply. I also left a message for Leena at [facility] in [place].
--- NOTE | 2024-10-02 14:23 | NUR ---
SPOKE WITH PT REGARDING LACK OF DECENT BM AND STOMACH CRAMPING. DECIDED TO TAKE THE MIRALAX BEFORE TRYING THE BENTYL, STATES THAT IT WORKS FOR HER AT HOME.
--- NOTE | 2024-10-02 15:00 | NUR ---
PATIENT UP TO BATHROOM, SBA FWW. SHOWER SET UP FOR PATIENT, PATIENT USING THE TOILET AT THIS TIME. TOLD PATIENT TO CALL WHEN DONE AND WE WILL MOVE TO SHOWER CHAIR. PATIENT CALLED WHEN DONE AND SAID SHE DID NOT WANT TO SHOWER NOW BECAUSE HER BACK HURT. PATIENT NOW BACK TO BED. CALL LIGHT IN REACH. NO FURTHER NEEDS AT THIS TIME.
--- NOTE | 2024-10-02 15:46 | NUR ---
PT HAS AGAIN REFUSED TO SHOWER. STATES SHE IS TOO TIRED AND BACK HURTS. NOW ASLEEP IN BED.
--- NOTE | 2024-10-02 18:14 | NUR ---
PT ATE ALL OF DINNER AND UP TO RESTOOM SBA FWW. STATES LOW BACK IS HURTING AND REQUESTED ANOTHER HOT PACK.
--- NOTE | 2024-10-02 19:30 | NUR ---
REPORT RECEIVED FROM DAY SHIFT RN. PT UP TO BR WITH SBA. DENIES NURSING NEEDS AT THIS TIME. WHITE BOARD UPDATED.
--- NOTE | 2024-10-02 19:42 | NUR ---
Patient up to restroom with staff assist. Patient voided 500ml clear yellow urine and medium formed brown stool. Patient reports 8/10 right hip pain, admin tylenol 650mg po at this time. Patient back to bed, alarm intact. Call light within reach.
--- NOTE | 2024-10-02 22:26 | NUR ---
PT AWAKE IN BED. EVENING ASSESSMENT COMPLETE. SCHEDULED MEDS ADMIN PER EMAR. NO C/O PAIN OR NAUSEA. DENIES SOB. 2L/NC IN PLACE. SpO2 LOW 90'S. LUNGS CLEAR THROUGHOUT. SNACKS PROVIDED PER REQUEST. PT DENIES QUESTIONS OR CONCERNS. CALL LIGHT IN REACH. BED ALARM FOR SAFETY.
--- NOTE | 2024-10-02 23:00 | NUR ---
ASSISTED PATIENT TO THE BATHROOM. PATIENT VOIDED 200ML CLOUDY YELLOW. PATIENT IS NOT 100% STABLE ON HER GAIT. PATIENT IS BACK IN BED. ALARM ON FOR SAFETY. PRIMARY RN NOTIFIED REGARDING THE URINE APPEARANCE.
--- NOTE | 2024-10-02 23:10 | NUR ---
PATIENT CALLED TO USE THE BATHROOM. 1 PA WITH MINIMAL ASSIST. PATIENT MISSED THE HAT VOIDED UNMEASURED. PATIENT IS BACK IN BED. WARM PACK WRAPPED WITH PILLOW CASE PROVIDED FOR HER LOWER BACK PER REQUEST. BED ALARM ON FOR SAFETY.
--- NOTE | 2024-10-03 01:12 | NUR ---
CALL LIGHT ANSWERED. PT UP TO BR WITH FWW AND SBA TO VOID AN UNMEASURED AMOUNT. BACK TO BED, CAS WELL. GAIT STEADY. 2L/NC IN PLACE. DENIES SOB. NO FURTHER NEEDS. BED ALARM FOR SAFETY.
--- NOTE | 2024-10-03 03:19 | NUR ---
CALL LIGHT ANSWERED. PT UP TO BR WITH MINIMAL SBA TO VOID AND HAVE SMALL FORMED BM. BACK TO BED, CAS WELL. ASSESSMENT COMPLETE. NO NEEDS AT THIS TIME. CALL LIGHT IN REACH. BED ALARM FOR SAFETY.
[2024-10-03 05:22] VITALS: BP 100/61
--- NOTE | 2024-10-03 05:56 | NUR ---
PT LYING IN BED RESTING WITH EYES CLOSED. RESPIRATIONS EVEN. CALL LIGHT IN REACH. BED ALARM FOR SAFETY.
[2024-10-03 05:59] LABS: ALBUMIN 3.1 g/dL (3.4-5.0); ALBUMIN/GLOBULIN RATIO 0.91 (1.1-2.4); ANION GAP 13.4 (7-21); BILIRUBIN, TOTAL 0.2 ng/dL (0.2-1.0); BUN/CREATININE RATIO 24.24 (6.0-28.6); CALCIUM 8.9 mg/dL (8.5-10.1); CREATININE, SERUM 0.66 mg/dL (0.55-1.02); POTASSIUM 4.4 mmol/L (3.5-5.1); PROTEIN, TOTAL 6.5 g/dL (6.4-8.2)
--- NOTE | 2024-10-03 07:19 | NUR ---
VERBAL REPORT RECEIVED FROM LIANNE CARTWRIGHT. PT RESTS IN BED WITH EYES CLOSED, RESP EVEN AND UNLABORED.
[2024-10-03 09:41] VITALS: BP 92/79
--- NOTE | 2024-10-03 11:00 | NUR ---
Chart faxed to sarahi at [facility]. They declined this pt last week. I called and spoke with her and she asks I resend the chart.
[2024-10-03 13:35] VITALS: BP 120/96
--- NOTE | 2024-10-03 13:52 | NUR ---
VISITED DURING SPIRITUAL CARE ROUNDS. PT APPEARED TO BE SLEEPING. DID NOT DISTURB. PROVIDED PRAYER.
--- NOTE | 2024-10-03 14:15 | NUR ---
PT SITS UP IN RECLINER, RESTS WITH EYES CLOSED, RESP EVEN AND UNLABORED. CALL LIGHT IN REACH.
--- NOTE | 2024-10-03 14:16 | NUR ---
PATIENT IN BED AT THIS TIME. GENERATION TECHNOLOGIST CHARTED VITALS AND I&O'S. CALL LIGHT WITHIN REACH, NO FURTHER NEEDS AT THIS TIME.
--- NOTE | 2024-10-03 15:00 | NUR ---
Called and spoke with Lanny at [facility]. They state they do not have any rooms, but if pt is still here next week, they will look at taking her. I spoke with pt and she still would like to go to Rehab for her alcohol use. I called Sofiya at [facility] and they will visit her tomorrow.
--- NOTE | 2024-10-03 17:05 | NUR ---
PT RESTS IN RECLINER, 2L O2 VIA NC IN PLACE, RESP EVEN AND UNLABORED. PT WATCHES TV, NO REQUESTS AT THIS TIME. CALL LIGHT IN REACH.
[2024-10-03 18:34] VITALS: BP 90/66
--- NOTE | 2024-10-03 18:59 | NUR ---
DR. VILLASENOR NOTIFIED OF PT'S BLOOD PRESSURE 90/66, MAP 72, PULSE 111. NEW ORDER RECEIVED FOR LR BOLUS.
[2024-10-03] MEDS ORDERED: LACTATED RINGER'S 1,000 ML IV ONE (19:00)
--- NOTE | 2024-10-03 19:05 | NUR ---
LR BOLUS STARTED, SEE EMAR.
--- NOTE | 2024-10-03 19:14 | NUR ---
PATIENT IN BED AT THIS TIME. SOLE SKIVER ASSISTED PATIENT TO BATHROOM AND THEN BACK TO BED. RN IN ROOM AT THIS TIME. CALL LIGHT WITHIN REACH, NO FURTHER NEEDS AT THIS TIME.
--- NOTE | 2024-10-03 19:42 | NUR ---
REPORT RECEIVED FROM DAY SHIFT RN. PT LYING IN BED ALERT AND ORIENTED. NO NEEDS AT THIS TIME. WHITE BOARD UPDATED. CALL LIGHT IN REACH. BED ALARM FOR SAFETY.
[2024-10-03 20:27] VITALS: BP 100/67
[2024-10-03 20:30] VITALS: BP 100/60
--- NOTE | 2024-10-03 20:39 | NUR ---
EVENING ASSESSMENT COMPLETE. SCHEDULED MEDS ADMIN PER EMAR. PT REPORTS LOWER BACK PAIN 05/27. PRN FOR PAIN ADMIN. PT SBA TO BR TO VOID AND HAVE SMALL BM. GAIT STEADY. BACK TO BED, CAS WELL. 2L/NC IN PLACE. SpO2 99%. PT DENIES SOB. LUNGS CLEAR THROUGHOUT. PT DENIES FURTHER NEEDS. BED ALARM IN PLACE. CALL LIGHT IN REACH.
--- NOTE | 2024-10-03 23:55 | NUR ---
PT RESTING IN BED WITH EYES CLOSED. RESPIRATIONS EVEN. CALL LIGHT IN REACH.
[2024-10-04] VITALS (8 sets, daily range): BP systolic 104–112; BP diastolic 56–73
--- NOTE | 2024-10-04 01:28 | NUR ---
PT RESTING IN BED WITH EYES CLOSED. RESPIRATIONS EVEN. CALL LIGHT IN REACH.
--- NOTE | 2024-10-04 02:17 | NUR ---
CALL LIGHT ANSWERED, SBA WITH FWW TO RESTROOM FOR VOID AND BACK TO BED. pt REQUIRES ASSISTANCE WITH MANAGING OXYGEN TUBING, TANGLES TUBING IN WALKER AND TURNS THE WRONG WAY TANGLING TUBING MORE. ASSISTED pt TO MANAGE LINES, GET INTO BED. BED ALARM ON. CALL LIGHT IN REACH.
--- NOTE | 2024-10-04 03:48 | NUR ---
PT RESTING IN BED WITH EYES CLOSED. RESPIRATIONS EVEN. CALL LIGHT IN REACH.
--- NOTE | 2024-10-04 05:00 | NUR ---
CALL LIGHT ANSWERED. PT UP TO BR WITH MINIMAL SBA TO VOID. BACK TO BED, CAS WELL. WARM BLANKET PROVIDED. VS AND I&O OBTAINED. NO FURTHER NEEDS. BED ALARM IN PLACE. CALL LIGHT IN REACH.
--- NOTE | 2024-10-04 07:13 | NUR ---
VERBAL REPORT RECEIVED FROM LIANNE CARTWRIGHT. PT RESTS IN BED WITH EYES CLOSED, RESP EVEN AND UNLABORED.
--- NOTE | 2024-10-04 08:27 | NUR ---
PATIENT IN CHAIR AT THIS TIME. PROGRAM/MUSIC DIRECTOR ASSISTED PATIENT INTO BATHROOM AND THEN BACK TO CHAIR. CALL LIGHT WITHIN REACH, NO FURTHER NEEDS AT THIS TIME.
--- NOTE | 2024-10-04 10:24 | NUR ---
PATIENT IN CHAIR AT THIS TIME. OPERATING ROOM REGISTERED NURSE CHARTED VITALS AND I&O'S. CALL LIGHT WITHIN REACH, NO FURTHER NEEDS AT THIS TIME.
--- NOTE | 2024-10-04 11:02 | NUR ---
VISITED DURING SPIRITUAL CARE ROUNDS. PT DENIED IMMEDIATE NEEDS, EXPRESSED DESIRE FOR TREATMENT, INTENT TO "GET LIFE BACK." FILTER OPERATOR PROVIDED SUPPORTIVE PRESENCE, HOSPITALITY, PRAYER, FACILITATED INTERACTION WITH THERAPY ANIMAL. PT EXPRESSED GRATITUDE.
--- NOTE | 2024-10-04 11:26 | NUR ---
ARIC PEER IN ROOM, SPEAKING WITH PATIENT.
--- NOTE | 2024-10-04 13:18 | NUR ---
IS PROVIDED TO PT. EDUCATION ON USE OF IS PROVIDED. PT VERBALIZES UNDERSTANDING AND PROVIDES RETURN DEMONSTRATION OF USE OF IS. PT SITS UP IN RECLINER, CALL LIGHT IN REACH, NO REQUESTS AT THIS TIME.
--- NOTE | 2024-10-04 14:44 | NUR ---
PT IS SITTING UP IN THE CHAIR WATCHING TV. PT CALL LIGHT AND PERSONAL BELONGINGS ARE WITHIN REACH. GAVE PT CUP OF COFFEE THEY ASKED FOR. PT STATED NO FURTHER NEEDS AT THIS TIME.
--- NOTE | 2024-10-04 14:55 | NUR ---
SPOKE WITH CHI AT [facility] REGARDING ALF MEDICAID ASSESSMENT. SHE WILL BE IN TO SEE PATIENT TOMORROW AT 1400. REQUESTING RECORDS. SENT VIA SECURE EMAIL.
--- NOTE | 2024-10-04 15:26 | NUR ---
SPOKE WITH PATIENT AND INFORMED HER CHI FROM [facility] WILL BE IN TOMORROW AT 1400 TO SPEAK WITH PATIENT REGARDING CORRECTION MEDICAID. SPOKE WITH ANDERSON REGARDING ARIC DISCUSSION. ARIC IS WORKING ON GETTING PATIENT INTO INPATIENT ALCOHOL REHAB.
--- NOTE | 2024-10-04 16:04 | NUR ---
Call from Leena at [facility]. They are able to accept patient on Wednesday. They will call after their 0900 meeting on Wednesday to notify staff what time they can be to facility to pick her up.
--- NOTE | 2024-10-04 19:40 | NUR ---
REPORT RECEIVED FROM DAY SHIFT RN. PT LYING IN BED RESTING WITH EYES CLOSED. RESPIRATIONS EVEN. CALL LIGHT IN REACH. BED ALARM FOR SAFETY.
--- NOTE | 2024-10-04 21:14 | NUR ---
REAL ESTATE ASSOCIATE OBTAINED VITALS. PT STATED SHE NEEDED TO USE BATHROOM. REAL ESTATE ASSOCIATE SBA TO BATHROOM. PT VOIDED AND HAD SMALL BM. PT ASSISTED BACK TO BED. PT OUTPUT MEASURED AND I&O DOCUMENTED. PT STATES NO FURTHER NEEDS AT THIS TIME. CALL LIGHT WITHIN REACH AND BED ALARM ON.
--- NOTE | 2024-10-04 21:35 | NUR ---
TIPPLE TENDER CHECKED PT BLOOD SUGAR. BLOOD SUGAR IS 102. PRIMARY RN NOTIFED. PT STATES NO FURTHER NEEDS AT THIS TIME. CALL LIGHT WITHIN REACH AND BED ALARM ON.
--- NOTE | 2024-10-04 22:15 | NUR ---
PT AWAKE IN BED ALERT AND ORIENTED. EVENING ASSESSMENT COMPLETE. SCHEDULED MEDS ADMIN PER EMAR. PT REPORTS LOWER BACK PAIN 05/27. PRN FOR PAIN ADMIN PER EMAR. 2L/NC IN PLACE. PT DENIES SOB. LUNGS CLEAR THROUGHOUT. SNACK PROVIDED PER REQUEST. PT DENIES QUESTIONS OR CONCERNS. CALL LIGHT IN REACH. BED ALARM FOR SAFETY.
[2024-10-05] VITALS (8 sets, daily range): BP systolic 108–118; BP diastolic 64–77
--- NOTE | 2024-10-05 00:48 | NUR ---
CALL LIGHT ANSWERED. PT NEEDED TO USE BATHROOM. SANDER AND BUFFER [id number] TO BATHROOM. PT VOIDED AND ASSISTED BACK TO BED. OUTPUT MEASURED. PT STATES NO FURTHER NEEDS AT THIS TIME. CALL LIGHT WITHIN REACH.
--- NOTE | 2024-10-05 02:45 | NUR ---
PT RESTING IN BED ON RIGHT SIDE WITH EYES CLOSED. 2L/NC IN PLACE. RESPIRATIONS EVEN. CALL LIGHT IN REACH. BED ALARM FOR SAFETY.
--- NOTE | 2024-10-05 04:38 | NUR ---
PT RESTING IN BED WITH EYES CLOSED. RESPIRATIONS EVEN. CALL LIGHT IN REACH. BED ALARM FOR SAFETY.
--- NOTE | 2024-10-05 05:36 | NUR ---
SENIOR STAFF ACCOUNTANT OBTAINED VITALS AND I&O. PT STATES NO NEEDS AT THIS TIME. CALL LIGHT WITHIN REACH AND BED ALARM ON.
--- NOTE | 2024-10-05 08:08 | NUR ---
DORIS REPORT RECIEVED FROM LIANNE MELENDEZ. PT LAYING IN BED WITH EYES CLOSED AND CHEST RISE EQUAL BILAT. PT HAS NO CONCERNS AT THIS TIME CALL LIGHT WITHIN REACH.
--- NOTE | 2024-10-05 08:42 | NUR ---
PATIENT IN CHAIR AT THIS THIS TIME. KINDERGARTEN TEACHER ASSISTANT ASSISTED PATIENT FROM BED TO CHAIR. CALL LIGHT WITHIN REACH, CHAIR ALARM IS ACTIVATED, PATIENT REQUESTED PAIN MEDS, RN HAD BEEM NOTIFIED. NO FURTHER NEEDS AT THIS TIME.
--- NOTE | 2024-10-05 08:59 | NUR ---
Patient asked for SBA to hospital for behavioral [facility],. Returned to bed once done. Blood sugar taken. They reported being in pain. LIANNE PALM/Giovani was informed of both.
--- NOTE | 2024-10-05 09:17 | NUR ---
PT SITTING IN CHAIR JUST FINISHED BREAKFAST. PT REPORTED BACK PAIN TO WHALE TRAINER AND WHALE TRAINER TOLD THIS RN. PRN TYLONOL GIVEN DURING MED PASS. PT HAS NO CONCERNS AT THIS TIME CALL LIGHT WITHIN REACH.
--- NOTE | 2024-10-05 09:25 | NUR ---
CALLED [facility] AND ASKED FOR CLARIFICATION ON O2 ORDER. [facility] REPORTED ON MAY [id number] ORDER RECEIVED FOR 4 LPM CONTINUOUS.
--- NOTE | 2024-10-05 09:26 | NUR ---
PT SITTING IN CHAIR WATCHING TV PT HAS NO CONCERNS AT THIS TIME CALL LIGHT WITHIN REACH.
--- NOTE | 2024-10-05 09:55 | NUR ---
On arrival to room by this RN, Yulia is found to be setting in her bedside chair and eating crackers. After introducing myself to Yulia I provide an eplanation of the IMM letter. We discuss that Yulia is expected to discharge in the next one to two days. Yulia signs the letter without hesitation or further questions. A signed compy of the letter is given to Yulia. Pt denies other care needs at this time, and states that her care has been "good" when asked.
--- NOTE | 2024-10-05 11:53 | NUR ---
PT SITTING IN CHAIR. PT REQUESTED SOME CRACKERS UNTIL LUNCH IS SERVED. PT HAS NO OTHER REQUESTS AT THIS TIME. PT CALL LIGHT WITHIN REACH.
--- NOTE | 2024-10-05 12:27 | NUR ---
PT SITTING UP IN CHAIR EATING LUNCH PT HAS NO CONCERNS AT THIS TIME. CALL LIGHT WITHIN REACH.
--- NOTE | 2024-10-05 14:08 | NUR ---
PT NOT AVAILABLE FOR VISIT. PROVIDED PRAYER.
--- NOTE | 2024-10-05 14:31 | NUR ---
PATIENT IN BED AT THIS TIME. TERRA COTTA ROOFER HELPER ASSISTED PATIENT FROM BED TO BATHROOM USING FRONT WHEELED WALKER. CALL LIGHT WITHIN REACH, BED ALARM ACTIVATED, NO FURTHER NEEDS AT THIS TIME.
--- NOTE | 2024-10-05 14:50 | NUR ---
Spoke with Deedee from [facility]. She is in the room and requesting futher information from pts chart while she completes pts eval for termination clerk medicaid. Chart for previous admission printed and given to Deedee as requested. Deedee updated pt will dc tomorrow to [facility] in [place].
--- NOTE | 2024-10-05 15:33 | NUR ---
Patient was sitting in their chair and asked for bathroom assist. Returned to bed once done.
--- NOTE | 2024-10-05 16:49 | NUR ---
PT SITTING IN BED WATCHING TV. PT ASKED ABOUT A SNACK BEFORE DINNER. PT REPORTED NO PAIN AT THIS TIME. CALL LIGHT WITHIN REACH.
--- NOTE | 2024-10-05 20:30 | NUR ---
CALL LIGHT ANSWERED. PT NEEDED TO USE BATHROOM. OFFENDER EMPLOYMENT SPECIALIST SBA WITH [facility] TO [facility]. PT VOIDED AND HAD LARGE BM. OFFENDER EMPLOYMENT SPECIALIST CHANGED DRAW SHEET ON BED. PT ASSISTED BACK TO BED. OFFENDER EMPLOYMENT SPECIALIST THEN OBTAINED AND DOCUMENTED VITALS AND I&O. PT ASKING FOR TYLENOL. PRIMARY RN NOTIFED. PT STATES NO FURTHER NEEDS AT THIS TIME. CALL LIGHT WITHIN REACH AND BED ALARM ON.
--- NOTE | 2024-10-05 21:34 | NUR ---
assessment complete, scheduled meds given along with prn tylenol-see emar for reported 10/10 chronic left sided hip and back pain. iv site wnl, flushes easily and saline locked. no additional needs or concerns, call light in reach and bed alarm on for safety.
--- NOTE | 2024-10-05 23:18 | NUR ---
rounded on pt, pt resting in bed, somewhat on right side. 2lnc in place. rr even and unlabored. call light in reach and bed alarm remains on for safety.
--- NOTE | 2024-10-06 00:26 | NUR ---
rounded on pt, pt on 2lnc. rr even and unlabored. no distress noted, call light in reach.
--- NOTE | 2024-10-06 01:27 | NUR ---
rounded on pt, pt resting in bed with 2lnc in place. rr even and unlabored, no distress noted. bed alarm on and call light in reach.
--- NOTE | 2024-10-06 02:20 | NUR ---
ROUNDED ON pt, SPO2 100% ON 2LNC, pt WEARS O2 CHRONICALLY AT HOME. HR 70'S, RR EVEN AND UNLABORED, NO DISTRESS NOTED. BED ALARM ON AND CALL LIGHT IN REACH. FOCUSED ASSESSMENT COMPLETE, NO ACUTE CHANGES.
--- NOTE | 2024-10-06 04:30 | NUR ---
rounded on pt, pt resting in bed, on 2lnc. rr even and unlabored, no distress noted. call light in reach. bed alarm on for safety.
[2024-10-06 05:16] VITALS: BP 99/65
--- NOTE | 2024-10-06 05:43 | NUR ---
PRN TYLENOL GIVEN FOR REPORTED 8/10 PAIN TO RIGHT HIP/BACK PAIN-CHRONIC PER pt. BED ALARM ON FOR SAFETY, CALL LIGHT IN REACH. 2LNC REMAINS IN PLACE, RR EVEN AND UNLABORED. WARM BLANKET ALSO PROVIDED.
--- NOTE | 2024-10-06 06:04 | NUR ---
BLUEPRINT DUPLICATOR OBTAINED VITALS AND I&O. PT STATES NO NEEDS AT THIS TIME. CALL LIGHT WITHIN REACH AND BED ALARM ON.
--- NOTE | 2024-10-06 07:53 | NUR ---
RECIEVED SHIFT REPORT. PT IS RESTING IN BED, EYES CLOSED, BREATHING EVEN AND UNLABORED. CALL LIGHT IN REACH.
--- NOTE | 2024-10-06 09:29 | NUR ---
MORNING ASSESSMENT COMPLETE. PT IS RESTING IN BED, THIS RN WOKE PT FOR MEDS. PT STATES 8/10 PAIN, STATING SCHEDULED MEDICATIONS (SEE EMAR) SHOULD HELP. THIS RN ASSISTED PT TO RESTROOM, WITH THE FWW. TOLERATED WELL.
--- NOTE | 2024-10-06 09:35 | NUR ---
Received completed SNF orders from Dr. Carreon. Orders and PASRR faxed to [facility] at [facility]. Texted [facility] orders sent.
[2024-10-06] MEDS ORDERED: BUPRENORPHINE HC8 MG SL (09:36)
[2024-10-06] MEDS ORDERED: BUPRENORPHINE HC2 MG SL (09:36)
[2024-10-06 09:43] VITALS: BP 110/58
--- NOTE | 2024-10-06 10:40 | NUR ---
Patient was deeply asleep upon first entry. They later called for bathroom assistance. Once done, they sat on the edge of their bed to eat breakfast.
--- NOTE | 2024-10-06 10:49 | NUR ---
Received text from [employer] to let us know they will pick Yulia up in their van at 1:30. They will bring a wc and oxygen. Charge nurse updated.
--- NOTE | 2024-10-06 11:30 | NUR ---
PT AWAKE IN BED, WATCHING TV. DENIES NEEDS. CALL LIGHT IN REACH.
--- NOTE | 2024-10-06 12:48 | NUR ---
PT IS AWAKE IN BED, EATING LUNCH. DENIES NEEDS. CALL LIGHT IN REACH
--- NOTE | 2024-10-06 12:56 | NUR ---
LIANNE MARIE FROM [facility] CALLED FOR REPORT. ALL QUESTIONS ANSWERED AT THIS TIME. MS NUMBER PROVIDED IF QUESTIONS ARE AQUIRED.
[2024-10-06 13:03] VITALS: BP 105/43
== END 2024-10-06 13:36 | DRG 189 ==
LOC: ED 20:18 → MS 22:20 → CCU 22:20 → MS 22:20 → CCU 09-27 13:08 → MS 09-28 09:05 → CCU 09-28 09:06 → MS 09-29 11:55
PROVIDERS: Family Medicine; Student in an Organized Health Care Education/Training Program; ADMIT Family Medicine; ATTEND Family Medicine
DX: J96.21 Acute and chronic respiratory failure with hypoxia (principal); J44.1 Chronic obstructive pulmonary disease with (acute) exacerbation; R73.9 Hyperglycemia, unspecified; K59.00 Constipation, unspecified; E87.6 Hypokalemia; E83.42 Hypomagnesemia; I10 Essential (primary) hypertension; B18.2 Chronic viral hepatitis C; F31.9 Bipolar disorder, unspecified; F41.9 Anxiety disorder, unspecified; M06.9 Rheumatoid arthritis, unspecified; G89.29 Other chronic pain; M54.9 Dorsalgia, unspecified; F10.20 Alcohol dependence, uncomplicated; Z88.8 Allergy status to other drugs, medicaments and biological substances; Z98.51 Tubal ligation status; Z87.891 Personal history of nicotine dependence; Z98.890 Other specified postprocedural states
CPT/HCPCS: 36415; 80048; 80053; 81003; 83735; 84100; 85025; 94640; 94644; 94760; 94762; 96365; 96366; 96372; 96375; 96376; 97110; 97162; 97164; 97165; 97166; 97530; 97535; A9270; A9270-GY; G0378; J1100; J1650; J1815; J2060; J2560; J2919; J3411; J7030; J7121; J7512